=== PATIENT | male | born 1965 | race African-American/Black ===

== ENCOUNTER 2020-08-08 14:45 | Inpatient (IN) | payer OTHER ==
[~2020-08-08] VITALS: Ht 175.3 cm; Wt 107.9 kg
[2020-08-08 15:27] LABS: BILIRUBIN,URINE NEGATIVE (NEG); CLARITY,URINE CLEAR; COLOR,URINE YELLOW; NITRITE,URINE NEGATIVE (NEG); PH,URINE 5.5 (<5.0-8.0); PROTEIN,URINE NEGATIVE (NEG-TRACE); UROBILINOGEN,URINE 0.2 mg/dL (0.2 mg/dL)
[2020-08-08 15:40] LABS: BASO % 0 % (0-3); EOS % 0 % (0-3); HEMATOCRIT 24.8 % (39.0-53.0); HEMOGLOBIN 7.8 g/dL (13.0-17.5); LYMPH # 2.4 x10^3/uL (1.0-4.8); LYMPH % 33 % (24-48); MEAN CORPUSCULAR HEMOGLOBIN 24 pg (25-35); MEAN CORPUSCULAR HGB CONC 32 g/dL (31-37); MEAN CORPUSCULAR VOLUME 77 fL (79-100); MONO # 0.7 x10^3/uL (0.0-1.1); MONO % 9 % (0-9); NEUT # 4.2 x10^3/uL (1.8-7.7); NEUT % 58 % (31-73); RED BLOOD COUNT 3.22 x10^6/uL (4.30-5.70); RED CELL DISTRIBUTION WIDTH 14.5 % (11.5-14.5); WHITE BLOOD COUNT 7.3 x10^3/uL (4.0-11.0)
[2020-08-08 15:40] LABS: RBC,URINE RARE /HPF (0-2)
[2020-08-08 15:41] LABS: AMORPHOUS SEDIMENT,UR PRESENT /HPF; WBC,URINE OCC /HPF (0-4)
[2020-08-08 15:42] LABS: BACTERIA,URINE 0 /HPF (0-FEW)
[2020-08-08 15:52] LABS: CREATININE 0.8 mg/dL (0.7-1.3); GFR 101.1; POTASSIUM 3.5 mmol/L (3.5-5.1)
[2020-08-08 15:56] LABS: ALBUMIN 3.3 g/dL (3.4-5.0); ALBUMIN/GLOBULIN RATIO 1.3 (1.0-1.7); MAGNESIUM 1.8 mg/dL (1.8-2.4); TOTAL BILIRUBIN 0.3 mg/dL (0.2-1.0); TOTAL PROTEIN 5.9 g/dL (6.4-8.2)
[2020-08-08] MEDS ORDERED: IOHEXOL 300 MG/ML 100ML VIAL. IV ONE (16:15)
[2020-08-08] MEDS ORDERED: CONTRAST GIVEN. MC PRN (16:15)
[2020-08-08 16:21] LABS: HYPOCHROMIA MOD; PLT ESTIMATE DECREASED (ADEQUATE)
[2020-08-08 16:22] LABS: MICROCYTOSIS SLIGHT
--- NOTE | 2020-08-08 16:38 | RAD ---
EXAM: Abdomen and pelvis CT with intravenous contrast. HISTORY: Diarrhea. Blood in stools. TECHNIQUE: Computed tomographic images of the abdomen and pelvis were obtained following the administ ration of intravenous contrast. Multiplanar reformatting was performed. *One or more of the following individualized dose reduction techniques were utilized for this examina tion: 1. Automated exposure control. 2. Adjustment of the mA and/or kV according to patient size. 3. Use of iterative reconstruction technique. COMPARISON: None. FINDINGS: Evaluation of the lower thorax demonstrates posterior dependent atelectasis. There is no in filtrate or pleural effusion. The heart is upper normal in size. No suspicious hepatic lesion is seen . The gallbladder, pancreas, spleen, adrenal glands and kidneys are unremarkable. The stomach is unre markable. There is no appendicitis. There is no bowel obstruction. There is no bowel wall thickening. The bladder is unremarkable. The aorta is normal in caliber. There is no lymphadenopathy. There is n o suspicious osseous lesion. There is degenerative change involving the lumbar spine, primarily at L4 -L5. There is foraminal and central canal stenosis primarily at this level. IMPRESSION: No acute abdominal or pelvic finding. Electronically signed by: Chelsi Rae MD (08/08/2020 4:35 PM) [id number]
[2020-08-08 16:45] LABS: PLATELET COUNT 114 x10^3/uL (140-400)
[2020-08-08 16:47] LABS: HOWELL-JOLLY BODIES PRESENT; OVALOCYTES MOD; TARGET CELLS OCC
--- NOTE | 2020-08-08 17:05 | ED.ADGEN ---
Past Medical History Past Medical History: Anxiety, Bipolar, Depression, Diverticulitis, Other Additional Past Medical Histor: "PRE-DIABETIC", OSTEOARTHRITIS Past Surgical History: No Surgical History Smoking Status: Former Smoker Alcohol Use: Sober Drug Use: None General Adult EDM: Chief Complaint: RECTAL BLEED HPI: HPI: Patient is a 55 year old AA male, brought to the emergency department in custody of [place] nuclear officer, who presents to the ER with complaints of r ectal bleeding that began this morning. Patient reported that he had severe diarrhea yesterday but denies any blood in his stools yesterday. Patient denies any abdominal pain. He reports that he had a near syncopal episode yesterday but denies any syncope today. Patient also denies any chest pain, shortness of breath, nausea, vomiting, dysuria, hematuria, increased urinary frequency, body aches, or fatigue. He currently denies any complaints of pain. Review of Systems: Review of Systems: Complete ROS is negative unless otherwise noted in HPI. Current Medications: Current Medications Medications (Trade) Dose Ordered Sig/Luma Start Time Stop Time Status Last Admin Dose Admin Info (CONTRAST GIVEN -- Rx MONITORING) 1 each PRN DAILY PRN 08/08/20 16:15 08/10/20 16:14 Iohexol (Omnipaque 300 Mg/ml) 75 ml 1X ONCE 08/08/20 16:15 08/08/20 16:16 DC 08/08/20 16:23 75 ML Sodium Chloride 1,000 ml @ 125 mls/hr Q8H 08/08/20 17:15 08/09/20 17:14 08/08/20 19:11 125 MLS/HR Allergies: Allergies: Allergies Coded Allergies Type Severity Reaction Last Updated Verified No Known Drug Allergies 08/08/20 No Physical Exam: PE: See Above Constitutional: Well developed, well nourished, no acute distress, non-toxic appearance. [] HENT: Normocephalic, atraumatic, bilateral external ears normal, nose normal. [] Eyes: PERRLA, EOMI, conjunctiva pale bilaterally, no discharge. [] Neck: Normal range of motion, no stridor. [] Cardiovascular:Heart rate regular rhythm Lungs & Thorax: Respirations even and unlabored, no retractions, no respiratory distress Abdomen: soft, no tenderness, no palpable mass, no pulsatile mass Skin: Warm, dry, no erythema, no rash. [] Extremities: No cyanosis, ROM intact, no edema. [] Neurologic: Alert and oriented X 3, normal sensory, normal motor, no focal deficits noted. [] Psychologic: Affect normal, judgement normal, mood normal. [] Current Patient Data: Labs: Laboratory Tests Test 08/08/20 15:00 08/08/20 15:29 Urine Collection Type Unknown Urine Color Yellow Urine Clarity Clear Urine pH 5.5 (<5.0-8.0) Urine Specific [place] 1.015 (1.000-1.030) Urine Protein Negative mg/dL (NEG-TRACE) Urine Glucose (UA) Negative mg/dL (NEG) Urine Ketones (Stick) Negative mg/dL (NEG) Urine Blood Negative (NEG) Urine Nitrite Negative (NEG) Urine Bilirubin Negative (NEG) Urine Urobilinogen Dipstick 0.2 mg/dL (0.2 mg/dL) Urine Leukocyte Esterase Negative (NEG) Urine RBC Rare /HPF (0-2) Urine WBC Occ /HPF (0-4) Urine Squamous Epithelial Cells Few /LPF Urine Amorphous Sediment Present /HPF Urine Bacteria 0 /HPF (0-FEW) Urine Mucus Slight /LPF White Blood Count 7.3 x10^3/uL (4.0-11.0) Red Blood Count 3.22 x10^6/uL (4.30-5.70) L Hemoglobin 7.8 g/dL (13.0-17.5) L Hematocrit 24.8 % (39.0-53.0) L Mean Corpuscular Volume 77 fL (79-100) L Mean Corpuscular Hemoglobin 24 pg (25-35) L Mean Corpuscular Hemoglobin Concent 32 g/dL (31-37) Red Cell Distribution Width 14.5 % (11.5-14.5) Platelet Count 114 x10^3/uL (140-400) L Neutrophils (%) (Auto) 58 % (31-73) Lymphocytes (%) (Auto) 33 % (24-48) Monocytes (%) (Auto) 9 % (0-9) Eosinophils (%) (Auto) 0 % (0-3) Basophils (%) (Auto) 0 % (0-3) Neutrophils # (Auto) 4.2 x10^3/uL (1.8-7.7) Lymphocytes # (Auto) 2.4 x10^3/uL (1.0-4.8) Monocytes # (Auto) 0.7 x10^3/uL (0.0-1.1) Eosinophils # (Auto) 0.0 x10^3/uL (0.0-0.7) Basophils # (Auto) 0.0 x10^3/uL (0.0-0.2) Platelet Estimate Decreased (ADEQUATE) Large Platelets Few Hypochromasia Mod Microcytosis Slight Target Cells Occ Ovalocytes Mod Stauffer-[place] Bodies Present Sodium Level 140 mmol/L (136-145) Potassium Level 3.5 mmol/L (3.5-5.1) Chloride Level 104 mmol/L (98-107) Carbon Dioxide Level 27 mmol/L (21-32) Anion Gap 9 (6-14) Blood Urea Nitrogen 17 mg/dL (8-26) Creatinine 0.8 mg/dL (0.7-1.3) Estimated GFR (Cockcroft-Gault) 101.1 BUN/Creatinine Ratio 21 (6-20) H Glucose Level 117 mg/dL (70-99) H Calcium Level 8.0 mg/dL (8.5-10.1) L Magnesium Level 1.8 mg/dL (1.8-2.4) Total Bilirubin 0.3 mg/dL (0.2-1.0) Aspartate Amino Transferase (AST) 22 U/L (15-37) Alanine Aminotransferase (ALT) 44 U/L (16-63) Alkaline Phosphatase 60 U/L (46-116) Total Protein 5.9 g/dL (6.4-8.2) L Albumin 3.3 g/dL (3.4-5.0) L Albumin/Globulin Ratio 1.3 (1.0-1.7) Lipase 52 U/L (73-393) L Laboratory Tests 08/08/20 15:29 Laboratory Tests 08/08/20 15:29 Vital Signs: Vital Signs Date Time Temp Pulse Resp B/P (MAP) Pulse Ox O2 Delivery O2 Flow Rate FiO2 08/08/20 17:27 74 120/54 (76) 100 Room Air 08/08/20 15:00 98.6 18 98.6 EKG: EKG: [] Heart Score: C/O Chest Pain: No Risk Factors: Risk Factors: DM, Current or recent (<one month) smoker, HTN, HLP, family history of CAD, obesity. Risk Scores: Score 0 - 3: 2.5% MACE over next 6 weeks - Discharge Home Score 4 - 6: 20.3% MACE over next 6 weeks - Admit for Clinical Observation Score 7 - 10: 72.7% MACE over next 6 weeks - Early Invasive Strategies Radiology/Procedures: Radiology/Procedures: PROCEDURE: CT ABD PELV W/ IV CONTRST ONLY EXAM: Abdomen and pelvis CT with intravenous contrast. HISTORY: Diarrhea. Blood in stools. TECHNIQUE: Computed tomographic images of the abdomen and pelvis were obtained following the administration of intravenous contrast. Multiplanar reformatting was performed. *One or more of the following individualized dose reduction techniques were utilized for this examination: 1. Automated exposure control. 2. Adjustment of the mA and/or kV according to patient size. 3. Use of iterative reconstruction technique. COMPARISON: None. FINDINGS: Evaluation of the lower thorax demonstrates posterior dependent atelectasis. There is no infiltrate or pleural effusion. The heart is upper normal in size. No suspicious hepatic lesion is seen. The gallbladder, pancreas, spleen, adrenal glands and kidneys are unremarkable. The stomach is unremarkable. There is no appendicitis. There is no bowel obstruction. There is no bowel wall thickening. The bladder is unremarkable. The aorta is normal in caliber. There is no lymphadenopathy. There is no suspicious osseous lesion. There is degenerative change involving the lumbar spine, primarily at L4-L5. There is foraminal and central canal stenosis primarily at this level. IMPRESSION: No acute abdominal or pelvic finding. [] Course & Med Decision Making: Course & Med Decision Making Pertinent Labs and Imaging studies reviewed. (See chart for details) [id number] with Dr. Abebe who is the admitting physician, and care was assumed following discussion of patient. Will admit patient for anemia and GI bleed. Advised that fecal occult stool has been ordered and is pending. Will consult GI as requested. Patient's vital signs stable. Patient remains afebrile, appears nontoxic, respirations even and unlabored. Patient will be admitted to the medical/surgical floor. Patient's case and plan of care also discussed with Dr. Chan [] Kanwal Disclaimer: Kanwal Disclaimer: This electronic medical record was generated, in whole or in part, using a voice recognition dictation system. Departure Departure Impression: Primary Impression: Rectal bleeding Additional Impression: Anemia Disposition: 09 ADMITTED INPT THIS HOSP Admitting Physician: DENISA Olmstead) Condition: STABLE Referrals: NO PCP (PCP) Problem Qualifiers Additional Impression: Anemia Anemia type: unspecified type Qualified Codes: D64.9 - Anemia, unspecified JJ GU APRN Aug 08, 2020 17:05
[2020-08-08] MEDS: IV NORMAL SALINE 1000ML BAG 1,000 ML IV SCH (19:11)
[2020-08-08 20:05] VITALS: BP 147/57
--- NOTE | 2020-08-08 21:09 | PDOC1 ---
History and Physical Date of Service: DOS: DATE: 08/08/20 TIME: 20:57 Chief Complaint: Chief Complain: Bright red blood per stool per rectum History of Present Illness: HPI: Patient is a 55-year-old incarcerated male with past medical history significant for bipolar disorder and depression who comes to the ED for blood in his stool today. Patient states that he has never had this before. He has never had tarry stools or maroon stools. He does denies any rectal pain or trauma. Patient did have a colonoscopy done 3 years ago which was negative for any polyps or masses. Has never had any internal hemorrhoids. Denies any recent weight loss. Denies fevers, chest pain, abdominal pain, dysuria or constipation. Past Medical/Surgical History: PMH/PSH: Bipolar disorder and depression Allergies: Allergies: Coded Allergies: No Known Drug Allergies (Unverified , 08/08/20) Family History: Family History: Reviewed with no relevant findings Social History: Social History: Denies alcohol, drug or tobacco abuse Current Medications: Current Medications Current Medications Iohexol (Omnipaque 300 Mg/ml) 75 ml 1X ONCE IV Last administered on 08/08/20at 16:23; Start 08/08/20 at 16:15; Stop 08/08/20 at 16:16; Status DC Info (CONTRAST GIVEN -- Rx MONITORING) 1 each PRN DAILY PRN MC SEE COMMENTS; Start 08/08/20 at 16:15; Stop 08/10/20 at 16:14 Sodium Chloride 1,000 ml @ 125 mls/hr Q8H IV Last administered on 08/08/20at 19:11; Start 08/08/20 at 17:15; Stop 08/09/20 at 17:14 ROS: Review of Systems Review of System REVIEW OF SYSTEMS: GENERAL: Denies weakness SKIN: No bruising, hair changes or rashes. EYES: No blurred, double or loss of vision. NOSE AND THROAT: No history of nosebleeds, hoarseness or sore throat. HEART: No history of palpitations, chest pain or shortness of breath on exertion. LUNGS: Denies cough, hemoptysis, wheezing or shortness of breath. GASTROINTESTINAL: Denies changes in appetite, nausea, vomiting, diarrhea or constipation. GENITOURINARY: No history of frequency, urgency, hesitancy or nocturia. NEUROLOGIC: Denies history of numbness, tingling, or tremor. PSYCHIATRIC: No history of panic, anxiety or depression. ENDOCRINE: No history of heat or cold intolerance, polyuria or polydipsia. EXTREMITIES: Denies joint pain, pain on walking or stiffness. Physical Exam: Vital Signs: Vital Signs Date Time Temp Pulse Resp B/P (MAP) Pulse Ox O2 Delivery O2 Flow Rate FiO2 08/08/20 20:05 98.5 65 18 147/57 (87) 98 Room Air 98.5 Physcial Exam: GEN: No apparent distress. Alert and oriented HEENT: Normal cephalic, atraumatic, external auditory canals are patent EYES: Extraocular muscles are intact, pupil are equally round and reactive to light and accommodation MUSCULOSKELETAL: Well developed , well nourished, good range of motion ENDOCRINE: No thyromegaly was palpated LYMPHATICS: No cervical chain or axillary nodes were noted HEMATOPOIETIC: No bruising NECK: Supple, no JVD, no thyromegaly was noted LUNGS: Clear to auscultation in all lung stephens without rhonchi or wheezing HEART: RRR, S!, S2 present. Peripheral pulses intact, no obvious murmurs noted ABDOMEN: Soft, nontender. Positive bowel sounds, no organomegaly, normal bowel sounds EXTREMITIES: Without clubbing, cyanosis, or edema. Pedal pulses intact. Negative Homans sign NEUROLOGIC: Normal speech and tone. A&O x 3, moves all extremities, no obvious focal deficits PSYCHIATRIC: Normal affect, normal mood. Stable SKIN: No ulcerations or rashes, good skin turgor, no jaundice VASCULAR: Good capillary refill, neurovascular bundle appears to be intact Labs: Labs: Laboratory Tests Test 08/08/20 15:00 08/08/20 15:29 08/08/20 20:32 Urine Collection Type Unknown Urine Color Yellow Urine Clarity Clear Urine pH 5.5 (<5.0-8.0) Urine Specific [place] 1.015 (1.000-1.030) Urine Protein Negative mg/dL (NEG-TRACE) Urine Glucose (UA) Negative mg/dL (NEG) Urine Ketones (Stick) Negative mg/dL (NEG) Urine Blood Negative (NEG) Urine Nitrite Negative (NEG) Urine Bilirubin Negative (NEG) Urine Urobilinogen Dipstick 0.2 mg/dL (0.2 mg/dL) Urine Leukocyte Esterase Negative (NEG) Urine RBC Rare /HPF (0-2) Urine WBC Occ /HPF (0-4) Urine Squamous Epithelial Cells Few /LPF Urine Amorphous Sediment Present /HPF Urine Bacteria 0 /HPF (0-FEW) Urine Mucus Slight /LPF White Blood Count 7.3 x10^3/uL (4.0-11.0) Red Blood Count 3.22 x10^6/uL (4.30-5.70) Hemoglobin 7.8 g/dL (13.0-17.5) Hematocrit 24.8 % (39.0-53.0) Mean Corpuscular Volume 77 fL (79-100) Mean Corpuscular Hemoglobin 24 pg (25-35) Mean Corpuscular Hemoglobin Concent 32 g/dL (31-37) Red Cell Distribution Width 14.5 % (11.5-14.5) Platelet Count 114 x10^3/uL (140-400) Neutrophils (%) (Auto) 58 % (31-73) Lymphocytes (%) (Auto) 33 % (24-48) Monocytes (%) (Auto) 9 % (0-9) Eosinophils (%) (Auto) 0 % (0-3) Basophils (%) (Auto) 0 % (0-3) Neutrophils # (Auto) 4.2 x10^3/uL (1.8-7.7) Lymphocytes # (Auto) 2.4 x10^3/uL (1.0-4.8) Monocytes # (Auto) 0.7 x10^3/uL (0.0-1.1) Eosinophils # (Auto) 0.0 x10^3/uL (0.0-0.7) Basophils # (Auto) 0.0 x10^3/uL (0.0-0.2) Platelet Estimate Decreased (ADEQUATE) Large Platelets Few Hypochromasia Mod Microcytosis Slight Target Cells Occ Ovalocytes Mod Stauffer-[place] Bodies Present Sodium Level 140 mmol/L (136-145) Potassium Level 3.5 mmol/L (3.5-5.1) Chloride Level 104 mmol/L (98-107) Carbon Dioxide Level 27 mmol/L (21-32) Anion Gap 9 (6-14) Blood Urea Nitrogen 17 mg/dL (8-26) Creatinine 0.8 mg/dL (0.7-1.3) Estimated GFR (Cockcroft-Gault) 101.1 BUN/Creatinine Ratio 21 (6-20) Glucose Level 117 mg/dL (70-99) Calcium Level 8.0 mg/dL (8.5-10.1) Magnesium Level 1.8 mg/dL (1.8-2.4) Total Bilirubin 0.3 mg/dL (0.2-1.0) Aspartate Amino Transf (AST/SGOT) 22 U/L (15-37) Alanine Aminotransferase (ALT/SGPT) 44 U/L (16-63) Alkaline Phosphatase 60 U/L (46-116) Total Protein 5.9 g/dL (6.4-8.2) Albumin 3.3 g/dL (3.4-5.0) Albumin/Globulin Ratio 1.3 (1.0-1.7) Lipase 52 U/L (73-393) Glucose (Fingerstick) 122 mg/dL (70-99) Laboratory Tests Test 08/08/20 15:00 08/08/20 15:29 08/08/20 20:32 Urine Collection Type Unknown Urine Color Yellow Urine Clarity Clear Urine pH 5.5 (<5.0-8.0) Urine Specific [place] 1.015 (1.000-1.030) Urine Protein Negative mg/dL (NEG-TRACE) Urine Glucose (UA) Negative mg/dL (NEG) Urine Ketones (Stick) Negative mg/dL (NEG) Urine Blood Negative (NEG) Urine Nitrite Negative (NEG) Urine Bilirubin Negative (NEG) Urine Urobilinogen Dipstick 0.2 mg/dL (0.2 mg/dL) Urine Leukocyte Esterase Negative (NEG) Urine RBC Rare /HPF (0-2) Urine WBC Occ /HPF (0-4) Urine Squamous Epithelial Cells Few /LPF Urine Amorphous Sediment Present /HPF Urine Bacteria 0 /HPF (0-FEW) Urine Mucus Slight /LPF White Blood Count 7.3 x10^3/uL (4.0-11.0) Red Blood Count 3.22 x10^6/uL (4.30-5.70) Hemoglobin 7.8 g/dL (13.0-17.5) Hematocrit 24.8 % (39.0-53.0) Mean Corpuscular Volume 77 fL (79-100) Mean Corpuscular Hemoglobin 24 pg (25-35) Mean Corpuscular Hemoglobin Concent 32 g/dL (31-37) Red Cell Distribution Width 14.5 % (11.5-14.5) Platelet Count 114 x10^3/uL (140-400) Neutrophils (%) (Auto) 58 % (31-73) Lymphocytes (%) (Auto) 33 % (24-48) Monocytes (%) (Auto) 9 % (0-9) Eosinophils (%) (Auto) 0 % (0-3) Basophils (%) (Auto) 0 % (0-3) Neutrophils # (Auto) 4.2 x10^3/uL (1.8-7.7) Lymphocytes # (Auto) 2.4 x10^3/uL (1.0-4.8) Monocytes # (Auto) 0.7 x10^3/uL (0.0-1.1) Eosinophils # (Auto) 0.0 x10^3/uL (0.0-0.7) Basophils # (Auto) 0.0 x10^3/uL (0.0-0.2) Platelet Estimate Decreased (ADEQUATE) Large Platelets Few Hypochromasia Mod Microcytosis Slight Target Cells Occ Ovalocytes Mod Stauffer-[place] Bodies Present Sodium Level 140 mmol/L (136-145) Potassium Level 3.5 mmol/L (3.5-5.1) Chloride Level 104 mmol/L (98-107) Carbon Dioxide Level 27 mmol/L (21-32) Anion Gap 9 (6-14) Blood Urea Nitrogen 17 mg/dL (8-26) Creatinine 0.8 mg/dL (0.7-1.3) Estimated GFR (Cockcroft-Gault) 101.1 BUN/Creatinine Ratio 21 (6-20) Glucose Level 117 mg/dL (70-99) Calcium Level 8.0 mg/dL (8.5-10.1) Magnesium Level 1.8 mg/dL (1.8-2.4) Total Bilirubin 0.3 mg/dL (0.2-1.0) Aspartate Amino Transf (AST/SGOT) 22 U/L (15-37) Alanine Aminotransferase (ALT/SGPT) 44 U/L (16-63) Alkaline Phosphatase 60 U/L (46-116) Total Protein 5.9 g/dL (6.4-8.2) Albumin 3.3 g/dL (3.4-5.0) Albumin/Globulin Ratio 1.3 (1.0-1.7) Lipase 52 U/L (73-393) Glucose (Fingerstick) 122 mg/dL (70-99) Images: Images EXAM: Abdomen and pelvis CT with intravenous contrast. HISTORY: Diarrhea. Blood in stools. TECHNIQUE: Computed tomographic images of the abdomen and pelvis were obtained following the administration of intravenous contrast. Multiplanar reformatting was performed. *One or more of the following individualized dose reduction techniques were utilized for this examination: 1. Automated exposure control. 2. Adjustment of the mA and/or kV according to patient size. 3. Use of iterative reconstruction technique. COMPARISON: None. FINDINGS: Evaluation of the lower thorax demonstrates posterior dependent atelectasis. There is no infiltrate or pleural effusion. The heart is upper normal in size. No suspicious hepatic lesion is seen. The gallbladder, pancreas, spleen, adrenal glands and kidneys are unremarkable. The stomach is unremarkable. There is no appendicitis. There is no bowel obstruction. There is no bowel wall thickening. The bladder is unremarkable. The aorta is normal in caliber. There is no lymphadenopathy. There is no suspicious osseous lesion. There is degenerative change involving the lumbar spine, primarily at L4-L5. There is foraminal and central canal stenosis primarily at this level. IMPRESSION: No acute abdominal or pelvic finding. Assessment/Plan Assessment/Plan Microcytic anemia due to lower GI bleed Thrombocytopenia Prerenal azotemia Admit to medicine for further management GI consult HIV screen UDS Ferritin level Continue IV fluids Clear liquid diet N.p.o. at midnight Hold for DVT prophylaxis Protonix GI prophylaxis ADA diet Full code Discussed with RN and SW Disposition inpatient management as above Surrogate decision maker is Undesignated this time Justifications for Admission Other Justification HANS ROGERS MD Aug 08, 2020 21:09
[2020-08-08] MEDS ORDERED: SENNOSIDES 8.6 MG TABLET PO PRN (21:15)
[2020-08-08] MEDS ORDERED: DEXTROSE 50% 25 GM / 50ML DISP.SYRIN. IV PRN (21:15)
[2020-08-08] MEDS ORDERED: ONDANSETRON PF 4 MG/2 ML VIAL. IVP PRN (21:15)
[2020-08-08] MEDS ORDERED: DOCUSATE SODIUM 100 MG CAPSULE. PO PRN (21:15)
[2020-08-08] MEDS ORDERED: MIRT-34 PO (21:32)
[2020-08-08] MEDS ORDERED: CELE100C PO (21:32)
[2020-08-08] MEDS ORDERED: MULT-246 PO (21:32)
[2020-08-08] MEDS ORDERED: SERT100T PO (21:32)
[2020-08-08] MEDS ORDERED: ATOR40TA PO (21:32)
--- NOTE | 2020-08-08 21:53 | NUR ---
Pt. arrived on unit at 2004 by wheelchair. Pt. does not complain of any pain, nausea, or vomiting. Call light is within reach with bed in lowest position. Will continue to monitor.
[2020-08-08 23:00] VITALS: BP 104/87
[2020-08-09] MEDS ORDERED: ACETAMINOPHEN 325 MG TABLET. PO PRN
[2020-08-09 03:00] VITALS: BP 101/49
[2020-08-09] MEDS: PANTOPRAZOLE IV PUSH 40 MG VIAL. IVP SCH (05:57)
[2020-08-09] MEDS: IV NORMAL SALINE 1000ML BAG 1,000 ML IV SCH ×2 (05:58→14:46)
[2020-08-09 07:00] VITALS: BP 116/57
[2020-08-09 07:20] LABS: BASO % 1 % (0-3); EOS # 0.1 x10^3/uL (0.0-0.7); EOS % 2 % (0-3); HEMATOCRIT 24.1 % (39.0-53.0); HEMOGLOBIN 7.5 g/dL (13.0-17.5); LYMPH # 2.4 x10^3/uL (1.0-4.8); LYMPH % 36 % (24-48); MEAN CORPUSCULAR HEMOGLOBIN 24 pg (25-35); MEAN CORPUSCULAR HGB CONC 31 g/dL (31-37); MEAN CORPUSCULAR VOLUME 78 fL (79-100); MONO # 0.7 x10^3/uL (0.0-1.1); MONO % 12 % (0-9); NEUT # 3.2 x10^3/uL (1.8-7.7); NEUT % 50 % (31-73); PLATELET COUNT 91 x10^3/uL (140-400); RED CELL DISTRIBUTION WIDTH 14.6 % (11.5-14.5); WHITE BLOOD COUNT 6.5 x10^3/uL (4.0-11.0)
[2020-08-09] MEDS ORDERED: MELO7.5T5 PO (07:26)
[2020-08-09 07:43] LABS: CALCIUM 8.1 mg/dL (8.5-10.1); CREATININE 0.7 mg/dL (0.7-1.3); GFR 142.7; MAGNESIUM 2.2 mg/dL (1.8-2.4); PHOSPHORUS 2.7 mg/dL (2.6-4.7); POTASSIUM 4.2 mmol/L (3.5-5.1)
[2020-08-09] MEDS: ATORVASTATIN CALCIUM 40 MG TABLET. PO SCH (08:37)
[2020-08-09] MEDS: SERTRALINE 50 MG TABLET. PO SCH (08:38)
--- NOTE | 2020-08-09 10:38 | PDOC ---
PROGRESS NOTES Date of Service: DATE: 08/09/20 TIME: 10:37 Chief Complaint Chief Complaint IMPRESSION Microcytic anemia due to lower GI bleed Thrombocytopenia Prerenal azotemia [employer]IL[employer] PLAN Admit to medicine for further management GI consult HIV screen UDS Ferritin level Continue IV fluids Clear liquid diet N.p.o. at midnight Hold for DVT prophylaxis Protonix GI prophylaxis ADA diet Full code Discussed with RN and SW Disposition inpatient management as above Surrogate decision maker is Undesignated this time History of Present Illness History of Present Illness Chief Complaint: Chief Complain: Bright red blood per stool per rectum History of Present Illness: HPI: Patient is a 55-year-old incarcerated male with past medical history significant for bipolar disorder and depression who comes to the ED for blood in his stool today. Patient states that he has never had this before. He has never had tarry stools or maroon stools. He does denies any rectal pain or trauma. Patient did have a colonoscopy done 3 years ago which was negative for any polyps or masses. Has never had any internal hemorrhoids. Denies any recent weight loss. Denies fevers, chest pain, abdominal pain, dysuria or constipation. Past Medical/Surgical History: PMH/PSH: Bipolar disorder and depression Allergies: Allergies: Coded Allergies: No Known Drug Allergies (Unverified , 08/08/20) Family History: Family History: Reviewed with no relevant findings Social History: Social History: Denies alcohol, drug or tobacco abuse Current Medications: Current Medications Current Medications Iohexol (Omnipaque 300 Mg/ml) 75 ml 1X ONCE IV Last administered on 08/08/20at 16:23; Start 08/08/20 at 16:15; Stop 08/08/20 at 16:16; Status DC Info (CONTRAST GIVEN -- Rx MONITORING) 1 each PRN DAILY PRN MC SEE COMMENTS; Start 08/08/20 at 16:15; Stop 08/10/20 at 16:14 Sodium Chloride 1,000 ml @ 125 mls/hr Q8H IV Last administered on 08/08/20at 19:11; Start 08/08/20 at 17:15; Stop 08/09/20 at 17:14 ROS: Review of Systems Review of System REVIEW OF SYSTEMS: GENERAL: Denies weakness SKIN: No bruising, hair changes or rashes. EYES: No blurred, double or loss of vision. NOSE AND THROAT: No history of nosebleeds, hoarseness or sore throat. HEART: No history of palpitations, chest pain or shortness of breath on exertion. LUNGS: Denies cough, hemoptysis, wheezing or shortness of breath. GASTROINTESTINAL: Denies changes in appetite, nausea, vomiting, diarrhea or constipation. GENITOURINARY: No history of frequency, urgency, hesitancy or nocturia. NEUROLOGIC: Denies history of numbness, tingling, or tremor. PSYCHIATRIC: No history of panic, anxiety or depression. ENDOCRINE: No history of heat or cold intolerance, polyuria or polydipsia. EXTREMITIES: Denies joint pain, pain on walking or stiffness. Vitals Vitals Vital Signs Date Time Temp Pulse Resp B/P (MAP) Pulse Ox O2 Delivery O2 Flow Rate FiO2 08/09/20 07:00 98.3 55 14 116/57 (76) 98 Room Air 98.3 Physical Exam Physical Exam Physcial Exam: GEN: No apparent distress. Alert and oriented HEENT: Normal cephalic, atraumatic, external auditory canals are patent EYES: Extraocular muscles are intact, pupil are equally round and reactive to light and accommodation MUSCULOSKELETAL: Well developed , well nourished, good range of motion ENDOCRINE: No thyromegaly was palpated LYMPHATICS: No cervical chain or axillary nodes were noted HEMATOPOIETIC: No bruising NECK: Supple, no JVD, no thyromegaly was noted LUNGS: Clear to auscultation in all lung stephens without rhonchi or wheezing HEART: RRR, S!, S2 present. Peripheral pulses intact, no obvious murmurs noted ABDOMEN: Soft, nontender. Positive bowel sounds, no organomegaly, normal bowel sounds EXTREMITIES: Without clubbing, cyanosis, or edema. Pedal pulses intact. Negative Homans sign NEUROLOGIC: Normal speech and tone. A&O x 3, moves all extremities, no obvious focal deficits PSYCHIATRIC: Normal affect, normal mood. Stable SKIN: No ulcerations or rashes, good skin turgor, no jaundice VASCULAR: Good capillary refill, neurovascular bundle appears to be intact General: Alert, Oriented X3, Cooperative, No acute distress Extremities: Normal pulses Labs LABS EXAM: Abdomen and pelvis CT with intravenous contrast. HISTORY: Diarrhea. Blood in stools. TECHNIQUE: Computed tomographic images of the abdomen and pelvis were obtained following the administration of intravenous contrast. Multiplanar reformatting was performed. *One or more of the following individualized dose reduction techniques were utilized for this examination: 1. Automated exposure control. 2. Adjustment of the mA and/or kV according to patient size. 3. Use of iterative reconstruction technique. COMPARISON: None. FINDINGS: Evaluation of the lower thorax demonstrates posterior dependent atelectasis. There is no infiltrate or pleural effusion. The heart is upper normal in size. No suspicious hepatic lesion is seen. The gallbladder, pancreas, spleen, adrenal glands and kidneys are unremarkable. The stomach is unremarkable. There is no appendicitis. There is no bowel obstruction. There is no bowel wall thickening. The bladder is unremarkable. The aorta is normal in caliber. There is no lymphadenopathy. There is no suspicious osseous lesion. There is degenerative change involving the lumbar spine, primarily at L4-L5. There is foraminal and central canal stenosis primarily at this level. IMPRESSION: No acute abdominal or pelvic finding. Electronically signed by: Chelsi Quintanilla MD (08/08/2020 4:35 PM) [id number] DICTATED and SIGNED BY: CHELSI QUINTANILLA MD Laboratory Tests Test 08/08/20 15:00 08/08/20 15:27 08/08/20 15:29 08/08/20 20:32 Urine Collection Type Unknown Urine Color Yellow Urine Clarity Clear Urine pH 5.5 (<5.0-8.0) Urine Specific [place] 1.015 (1.000-1.030) Urine Protein Negative mg/dL (NEG-TRACE) Urine Glucose (UA) Negative mg/dL (NEG) Urine Ketones (Stick) Negative mg/dL (NEG) Urine Blood Negative (NEG) Urine Nitrite Negative (NEG) Urine Bilirubin Negative (NEG) Urine Urobilinogen Dipstick 0.2 mg/dL (0.2 mg/dL) Urine Leukocyte Esterase Negative (NEG) Urine RBC Rare /HPF (0-2) Urine WBC Occ /HPF (0-4) Urine Squamous Epithelial Cells Few /LPF Urine Amorphous Sediment Present /HPF Urine Bacteria 0 /HPF (0-FEW) Urine Mucus Slight /LPF Ferritin 40 ng/mL (26-388) White Blood Count 7.3 x10^3/uL (4.0-11.0) Red Blood Count 3.22 x10^6/uL (4.30-5.70) Hemoglobin 7.8 g/dL (13.0-17.5) Hematocrit 24.8 % (39.0-53.0) Mean Corpuscular Volume 77 fL (79-100) Mean Corpuscular Hemoglobin 24 pg (25-35) Mean Corpuscular Hemoglobin Concent 32 g/dL (31-37) Red Cell Distribution Width 14.5 % (11.5-14.5) Platelet Count 114 x10^3/uL (140-400) Neutrophils (%) (Auto) 58 % (31-73) Lymphocytes (%) (Auto) 33 % (24-48) Monocytes (%) (Auto) 9 % (0-9) Eosinophils (%) (Auto) 0 % (0-3) Basophils (%) (Auto) 0 % (0-3) Neutrophils # (Auto) 4.2 x10^3/uL (1.8-7.7) Lymphocytes # (Auto) 2.4 x10^3/uL (1.0-4.8) Monocytes # (Auto) 0.7 x10^3/uL (0.0-1.1) Eosinophils # (Auto) 0.0 x10^3/uL (0.0-0.7) Basophils # (Auto) 0.0 x10^3/uL (0.0-0.2) Platelet Estimate Decreased (ADEQUATE) Large Platelets Few Hypochromasia Mod Microcytosis Slight Target Cells Occ Ovalocytes Mod Stauffer-[place] Bodies Present Sodium Level 140 mmol/L (136-145) Potassium Level 3.5 mmol/L (3.5-5.1) Chloride Level 104 mmol/L (98-107) Carbon Dioxide Level 27 mmol/L (21-32) Anion Gap 9 (6-14) Blood Urea Nitrogen 17 mg/dL (8-26) Creatinine 0.8 mg/dL (0.7-1.3) Estimated GFR (Cockcroft-Gault) 101.1 BUN/Creatinine Ratio 21 (6-20) Glucose Level 117 mg/dL (70-99) Calcium Level 8.0 mg/dL (8.5-10.1) Magnesium Level 1.8 mg/dL (1.8-2.4) Total Bilirubin 0.3 mg/dL (0.2-1.0) Aspartate Amino Transf (AST/SGOT) 22 U/L (15-37) Alanine Aminotransferase (ALT/SGPT) 44 U/L (16-63) Alkaline Phosphatase 60 U/L (46-116) Total Protein 5.9 g/dL (6.4-8.2) Albumin 3.3 g/dL (3.4-5.0) Albumin/Globulin Ratio 1.3 (1.0-1.7) Lipase 52 U/L (73-393) Glucose (Fingerstick) 122 mg/dL (70-99) Test 08/09/20 06:40 White Blood Count 6.5 x10^3/uL (4.0-11.0) Red Blood Count 3.10 x10^6/uL (4.30-5.70) Hemoglobin 7.5 g/dL (13.0-17.5) Hematocrit 24.1 % (39.0-53.0) Mean Corpuscular Volume 78 fL (79-100) Mean Corpuscular Hemoglobin 24 pg (25-35) Mean Corpuscular Hemoglobin Concent 31 g/dL (31-37) Red Cell Distribution Width 14.6 % (11.5-14.5) Platelet Count 91 x10^3/uL (140-400) Neutrophils (%) (Auto) 50 % (31-73) Lymphocytes (%) (Auto) 36 % (24-48) Monocytes (%) (Auto) 12 % (0-9) Eosinophils (%) (Auto) 2 % (0-3) Basophils (%) (Auto) 1 % (0-3) Neutrophils # (Auto) 3.2 x10^3/uL (1.8-7.7) Lymphocytes # (Auto) 2.4 x10^3/uL (1.0-4.8) Monocytes # (Auto) 0.7 x10^3/uL (0.0-1.1) Eosinophils # (Auto) 0.1 x10^3/uL (0.0-0.7) Basophils # (Auto) 0.0 x10^3/uL (0.0-0.2) Sodium Level 144 mmol/L (136-145) Potassium Level 4.2 mmol/L (3.5-5.1) Chloride Level 109 mmol/L (98-107) Carbon Dioxide Level 29 mmol/L (21-32) Anion Gap 6 (6-14) Blood Urea Nitrogen 10 mg/dL (8-26) Creatinine 0.7 mg/dL (0.7-1.3) Estimated GFR (Cockcroft-Gault) 142.7 Glucose Level 107 mg/dL (70-99) Calcium Level 8.1 mg/dL (8.5-10.1) Phosphorus Level 2.7 mg/dL (2.6-4.7) Magnesium Level 2.2 mg/dL (1.8-2.4) Assessment and Plan Assessmemt and Plan Problems Medical Problems: (1) Anemia Status: Acute (2) Rectal bleeding Status: Acute Comment Review of Relevant I have reviewed the following items bennie (where applicable) has been applied. Labs Laboratory Tests Test 08/08/20 15:00 08/08/20 15:27 08/08/20 15:29 08/08/20 20:32 Urine Collection Type Unknown Urine Color Yellow Urine Clarity Clear Urine pH 5.5 (<5.0-8.0) Urine Specific [place] 1.015 (1.000-1.030) Urine Protein Negative mg/dL (NEG-TRACE) Urine Glucose (UA) Negative mg/dL (NEG) Urine Ketones (Stick) Negative mg/dL (NEG) Urine Blood Negative (NEG) Urine Nitrite Negative (NEG) Urine Bilirubin Negative (NEG) Urine Urobilinogen Dipstick 0.2 mg/dL (0.2 mg/dL) Urine Leukocyte Esterase Negative (NEG) Urine RBC Rare /HPF (0-2) Urine WBC Occ /HPF (0-4) Urine Squamous Epithelial Cells Few /LPF Urine Amorphous Sediment Present /HPF Urine Bacteria 0 /HPF (0-FEW) Urine Mucus Slight /LPF Ferritin 40 ng/mL (26-388) White Blood Count 7.3 x10^3/uL (4.0-11.0) Red Blood Count 3.22 x10^6/uL (4.30-5.70) Hemoglobin 7.8 g/dL (13.0-17.5) Hematocrit 24.8 % (39.0-53.0) Mean Corpuscular Volume 77 fL (79-100) Mean Corpuscular Hemoglobin 24 pg (25-35) Mean Corpuscular Hemoglobin Concent 32 g/dL (31-37) Red Cell Distribution Width 14.5 % (11.5-14.5) Platelet Count 114 x10^3/uL (140-400) Neutrophils (%) (Auto) 58 % (31-73) Lymphocytes (%) (Auto) 33 % (24-48) Monocytes (%) (Auto) 9 % (0-9) Eosinophils (%) (Auto) 0 % (0-3) Basophils (%) (Auto) 0 % (0-3) Neutrophils # (Auto) 4.2 x10^3/uL (1.8-7.7) Lymphocytes # (Auto) 2.4 x10^3/uL (1.0-4.8) Monocytes # (Auto) 0.7 x10^3/uL (0.0-1.1) Eosinophils # (Auto) 0.0 x10^3/uL (0.0-0.7) Basophils # (Auto) 0.0 x10^3/uL (0.0-0.2) Platelet Estimate Decreased (ADEQUATE) Large Platelets Few Hypochromasia Mod Microcytosis Slight Target Cells Occ Ovalocytes Mod Stauffer-[place] Bodies Present Sodium Level 140 mmol/L (136-145) Potassium Level 3.5 mmol/L (3.5-5.1) Chloride Level 104 mmol/L (98-107) Carbon Dioxide Level 27 mmol/L (21-32) Anion Gap 9 (6-14) Blood Urea Nitrogen 17 mg/dL (8-26) Creatinine 0.8 mg/dL (0.7-1.3) Estimated GFR (Cockcroft-Gault) 101.1 BUN/Creatinine Ratio 21 (6-20) Glucose Level 117 mg/dL (70-99) Calcium Level 8.0 mg/dL (8.5-10.1) Magnesium Level 1.8 mg/dL (1.8-2.4) Total Bilirubin 0.3 mg/dL (0.2-1.0) Aspartate Amino Transf (AST/SGOT) 22 U/L (15-37) Alanine Aminotransferase (ALT/SGPT) 44 U/L (16-63) Alkaline Phosphatase 60 U/L (46-116) Total Protein 5.9 g/dL (6.4-8.2) Albumin 3.3 g/dL (3.4-5.0) Albumin/Globulin Ratio 1.3 (1.0-1.7) Lipase 52 U/L (73-393) Glucose (Fingerstick) 122 mg/dL (70-99) Test 08/09/20 06:40 White Blood Count 6.5 x10^3/uL (4.0-11.0) Red Blood Count 3.10 x10^6/uL (4.30-5.70) Hemoglobin 7.5 g/dL (13.0-17.5) Hematocrit 24.1 % (39.0-53.0) Mean Corpuscular Volume 78 fL (79-100) Mean Corpuscular Hemoglobin 24 pg (25-35) Mean Corpuscular Hemoglobin Concent 31 g/dL (31-37) Red Cell Distribution Width 14.6 % (11.5-14.5) Platelet Count 91 x10^3/uL (140-400) Neutrophils (%) (Auto) 50 % (31-73) Lymphocytes (%) (Auto) 36 % (24-48) Monocytes (%) (Auto) 12 % (0-9) Eosinophils (%) (Auto) 2 % (0-3) Basophils (%) (Auto) 1 % (0-3) Neutrophils # (Auto) 3.2 x10^3/uL (1.8-7.7) Lymphocytes # (Auto) 2.4 x10^3/uL (1.0-4.8) Monocytes # (Auto) 0.7 x10^3/uL (0.0-1.1) Eosinophils # (Auto) 0.1 x10^3/uL (0.0-0.7) Basophils # (Auto) 0.0 x10^3/uL (0.0-0.2) Sodium Level 144 mmol/L (136-145) Potassium Level 4.2 mmol/L (3.5-5.1) Chloride Level 109 mmol/L (98-107) Carbon Dioxide Level 29 mmol/L (21-32) Anion Gap 6 (6-14) Blood Urea Nitrogen 10 mg/dL (8-26) Creatinine 0.7 mg/dL (0.7-1.3) Estimated GFR (Cockcroft-Gault) 142.7 Glucose Level 107 mg/dL (70-99) Calcium Level 8.1 mg/dL (8.5-10.1) Phosphorus Level 2.7 mg/dL (2.6-4.7) Magnesium Level 2.2 mg/dL (1.8-2.4) Laboratory Tests Test 08/08/20 15:00 08/08/20 15:27 08/08/20 15:29 08/08/20 20:32 Urine Collection Type Unknown Urine Color Yellow Urine Clarity Clear Urine pH 5.5 (<5.0-8.0) Urine Specific [place] 1.015 (1.000-1.030) Urine Protein Negative mg/dL (NEG-TRACE) Urine Glucose (UA) Negative mg/dL (NEG) Urine Ketones (Stick) Negative mg/dL (NEG) Urine Blood Negative (NEG) Urine Nitrite Negative (NEG) Urine Bilirubin Negative (NEG) Urine Urobilinogen Dipstick 0.2 mg/dL (0.2 mg/dL) Urine Leukocyte Esterase Negative (NEG) Urine RBC Rare /HPF (0-2) Urine WBC Occ /HPF (0-4) Urine Squamous Epithelial Cells Few /LPF Urine Amorphous Sediment Present /HPF Urine Bacteria 0 /HPF (0-FEW) Urine Mucus Slight /LPF Ferritin 40 ng/mL (26-388) White Blood Count 7.3 x10^3/uL (4.0-11.0) Red Blood Count 3.22 x10^6/uL (4.30-5.70) Hemoglobin 7.8 g/dL (13.0-17.5) Hematocrit 24.8 % (39.0-53.0) Mean Corpuscular Volume 77 fL (79-100) Mean Corpuscular Hemoglobin 24 pg (25-35) Mean Corpuscular Hemoglobin Concent 32 g/dL (31-37) Red Cell Distribution Width 14.5 % (11.5-14.5) Platelet Count 114 x10^3/uL (140-400) Neutrophils (%) (Auto) 58 % (31-73) Lymphocytes (%) (Auto) 33 % (24-48) Monocytes (%) (Auto) 9 % (0-9) Eosinophils (%) (Auto) 0 % (0-3) Basophils (%) (Auto) 0 % (0-3) Neutrophils # (Auto) 4.2 x10^3/uL (1.8-7.7) Lymphocytes # (Auto) 2.4 x10^3/uL (1.0-4.8) Monocytes # (Auto) 0.7 x10^3/uL (0.0-1.1) Eosinophils # (Auto) 0.0 x10^3/uL (0.0-0.7) Basophils # (Auto) 0.0 x10^3/uL (0.0-0.2) Platelet Estimate Decreased (ADEQUATE) Large Platelets Few Hypochromasia Mod Microcytosis Slight Target Cells Occ Ovalocytes Mod Stauffer-[place] Bodies Present Sodium Level 140 mmol/L (136-145) Potassium Level 3.5 mmol/L (3.5-5.1) Chloride Level 104 mmol/L (98-107) Carbon Dioxide Level 27 mmol/L (21-32) Anion Gap 9 (6-14) Blood Urea Nitrogen 17 mg/dL (8-26) Creatinine 0.8 mg/dL (0.7-1.3) Estimated GFR (Cockcroft-Gault) 101.1 BUN/Creatinine Ratio 21 (6-20) Glucose Level 117 mg/dL (70-99) Calcium Level 8.0 mg/dL (8.5-10.1) Magnesium Level 1.8 mg/dL (1.8-2.4) Total Bilirubin 0.3 mg/dL (0.2-1.0) Aspartate Amino Transf (AST/SGOT) 22 U/L (15-37) Alanine Aminotransferase (ALT/SGPT) 44 U/L (16-63) Alkaline Phosphatase 60 U/L (46-116) Total Protein 5.9 g/dL (6.4-8.2) Albumin 3.3 g/dL (3.4-5.0) Albumin/Globulin Ratio 1.3 (1.0-1.7) Lipase 52 U/L (73-393) Glucose (Fingerstick) 122 mg/dL (70-99) Test 08/09/20 06:40 White Blood Count 6.5 x10^3/uL (4.0-11.0) Red Blood Count 3.10 x10^6/uL (4.30-5.70) Hemoglobin 7.5 g/dL (13.0-17.5) Hematocrit 24.1 % (39.0-53.0) Mean Corpuscular Volume 78 fL (79-100) Mean Corpuscular Hemoglobin 24 pg (25-35) Mean Corpuscular Hemoglobin Concent 31 g/dL (31-37) Red Cell Distribution Width 14.6 % (11.5-14.5) Platelet Count 91 x10^3/uL (140-400) Neutrophils (%) (Auto) 50 % (31-73) Lymphocytes (%) (Auto) 36 % (24-48) Monocytes (%) (Auto) 12 % (0-9) Eosinophils (%) (Auto) 2 % (0-3) Basophils (%) (Auto) 1 % (0-3) Neutrophils # (Auto) 3.2 x10^3/uL (1.8-7.7) Lymphocytes # (Auto) 2.4 x10^3/uL (1.0-4.8) Monocytes # (Auto) 0.7 x10^3/uL (0.0-1.1) Eosinophils # (Auto) 0.1 x10^3/uL (0.0-0.7) Basophils # (Auto) 0.0 x10^3/uL (0.0-0.2) Sodium Level 144 mmol/L (136-145) Potassium Level 4.2 mmol/L (3.5-5.1) Chloride Level 109 mmol/L (98-107) Carbon Dioxide Level 29 mmol/L (21-32) Anion Gap 6 (6-14) Blood Urea Nitrogen 10 mg/dL (8-26) Creatinine 0.7 mg/dL (0.7-1.3) Estimated GFR (Cockcroft-Gault) 142.7 Glucose Level 107 mg/dL (70-99) Calcium Level 8.1 mg/dL (8.5-10.1) Phosphorus Level 2.7 mg/dL (2.6-4.7) Magnesium Level 2.2 mg/dL (1.8-2.4) Medications Current Medications Iohexol (Omnipaque 300 Mg/ml) 75 ml 1X ONCE IV Last administered on 08/08/20at 16:23; Start 08/08/20 at 16:15; Stop 08/08/20 at 16:16; Status DC Info (CONTRAST GIVEN -- Rx MONITORING) 1 each PRN DAILY PRN MC SEE COMMENTS; Start 3/12/21 at 16:15; Stop 08/10/20 at 16:14 Sodium Chloride 1,000 ml @ 125 mls/hr Q8H IV Last administered on 08/09/20at 05:58; Start 08/08/20 at 17:15; Stop 08/09/20 at 17:14 Sennosides (Senna) 17.2 mg PRN BID PRN PO CONSTIPATION; Start 08/08/20 at 21:15 Docusate Sodium (Colace) 100 mg PRN DAILY PRN PO HARD STOOLS; Start 08/08/20 at 21:15 Ondansetron HCl (Zofran) 4 mg PRN Q6HRS PRN IVP NAUSEA/VOMITING 1ST CHOICE; Start 08/08/20 at 21:15 Dextrose (Dextrose 50%-Water Syringe) 12.5 gm PRN Q15MIN PRN IV SEE COMMENTS; Start 08/08/20 at 21:15 Acetaminophen (Tylenol) 650 mg PRN Q4HRS PRN PO TEMP OVER 100.4F OR MILD PAIN; Start 08/08/20 at 21:15 Pantoprazole Sodium (PROTONIX VIAL for IV PUSH) 40 mg DAILYAC IVP Last adm inistered on 08/09/20at 05:57; Start 08/09/20 at 07:30 Atorvastatin Calcium (Lipitor) 40 mg DAILY PO Last administered on 08/09/20at 08:37; Start 08/09/20 at 09:00 Sertraline HCl (Zoloft) 100 mg DAILY PO Last administered on 08/09/20at 08:38; Start 08/09/20 at 09:00 Acetaminophen (Tylenol) 650 mg PRN Q6HRS PRN PO MILD PAIN / TEMP > 100.3'F; Start 08/09/20 at 00:00; Stop 08/09/20 at 00:03; Status DC Active Scripts Active Reported Mobic (Meloxicam) 7.5 Mg Tablet 7.5 Mg PO BID Lipitor (Atorvastatin Calcium) 40 Mg Tablet 40 Mg PO DAILY Multi-Vitamin Daily (Multivitamin) 1 Each Tablet 1 Tab PO DAILY 30 Days Celebrex (Celecoxib) 100 Mg Capsule 100 Mg PO BID 30 Days Remeron (Mirtazapine) 30 Mg Tablet 1 Tab PO QHS Zoloft (Sertraline Hcl) 100 Mg Tablet 100 Mg PO DAILY Vitals/I & O Vital Sign - Last 24 Hours 08/08/20 08/08/20 08/08/20 08/08/20 14:57 15:00 15:27 15:57 Temp 98.6 98.6 Pulse 87 84 79 71 Resp 18 B/P (MAP) 173/87 (115) 173/87 (115) 137/63 (87) 111/56 (74) Pulse Ox 100 99 100 100 O2 Delivery Room Air Room Air Room Air Room Air 08/08/20 08/08/20 08/08/20 08/08/20 16:57 17:27 19:27 19:55 Pulse 69 74 66 66 B/P (MAP) 124/63 (83) 120/54 (76) 119/61 (80) 108/68 (81) Pulse Ox 98 100 97 97 O2 Delivery Room Air Room Air Room Air Room Air 08/08/20 08/08/20 08/09/20 08/09/20 20:05 23:00 03:00 07:00 Temp 98.5 97.7 97.8 98.3 98.5 97.7 97.8 98.3 Pulse 65 54 60 55 Resp 18 18 18 14 B/P (MAP) 147/57 (87) 104/87 (93) 101/49 (66) 116/57 (76) Pulse Ox 98 93 95 98 O2 Delivery Room Air Room Air Room Air Room Air Justicifation of Admission Dx: Justifications for Admission: Justification of Admission Dx: Yes Comments: rectal bleeding PILAR BRANTLEY MD Aug 09, 2020 10:38
[2020-08-09 11:00] VITALS: BP 132/67
--- NOTE | 2020-08-09 12:09 | PDOC2 ---
GI CONSULT Date of Service: DATE: 08/09/20 TIME: 11:56 Reason For Consult: Blood in stool/anemia HPI: HPI: 55 y/o male with 3 days of overt blood in stool; stools have been looser with this but frequency (BID) same as before. Denies melena though mentions "darker" now. Noted to have microcytic anemia. Had historically normal colonoscopy in [place], [place] in 2018. Says long-standing issues with iron deficiency and off and on po iron, currently off. Never had EGD. No pain, N, V. Wt/appetite OK. GIFH negative. Never constipation. Denies heartburn, dysphagia, PUD, GB or pancreatic history. Apparently positive HCV antibody with negative PCR assays c/w false-positive antibody. PMH: PMH: BAD, depression FH: Family History: No pertinent hx Social History: Smoke: No ALCOHOL: none Drugs: None ROS: GEN: Denies fevers, chills, sweats HEENT: Denies blurred vision, sore throat CV: Denies chest pain RESP: Denies shortness of air, cough GI: Per HPI : Denies hematuria, dysuria ENDO: Denies weight changes NEURO: Denies confusion, dizziness MSK: Denies weakness, joint pain/swelling SKIN: Denies jaundice, pruritus Vitals: Vitals: Vital Signs Date Time Temp Pulse Resp B/P (MAP) Pulse Ox O2 Delivery O2 Flow Rate FiO2 08/09/20 11:00 97.7 65 16 132/67 (88) 98 Room Air 97.7 Labs: Labs: Laboratory Tests Test 08/08/20 15:00 08/08/20 15:27 08/08/20 15:29 08/08/20 20:32 Urine Collection Type Unknown Urine Color Yellow Urine Clarity Clear Urine pH 5.5 (<5.0-8.0) Urine Specific [place] 1.015 (1.000-1.030) Urine Protein Negative mg/dL (NEG-TRACE) Urine Glucose (UA) Negative mg/dL (NEG) Urine Ketones (Stick) Negative mg/dL (NEG) Urine Blood Negative (NEG) Urine Nitrite Negative (NEG) Urine Bilirubin Negative (NEG) Urine Urobilinogen Dipstick 0.2 mg/dL (0.2 mg/dL) Urine Leukocyte Esterase Negative (NEG) Urine RBC Rare /HPF (0-2) Urine WBC Occ /HPF (0-4) Urine Squamous Epithelial Cells Few /LPF Urine Amorphous Sediment Present /HPF Urine Bacteria 0 /HPF (0-FEW) Urine Mucus Slight /LPF Ferritin 40 ng/mL (26-388) White Blood Count 7.3 x10^3/uL (4.0-11.0) Red Blood Count 3.22 x10^6/uL (4.30-5.70) Hemoglobin 7.8 g/dL (13.0-17.5) Hematocrit 24.8 % (39.0-53.0) Mean Corpuscular Volume 77 fL (79-100) Mean Corpuscular Hemoglobin 24 pg (25-35) Mean Corpuscular Hemoglobin Concent 32 g/dL (31-37) Red Cell Distribution Width 14.5 % (11.5-14.5) Platelet Count 114 x10^3/uL (140-400) Neutrophils (%) (Auto) 58 % (31-73) Lymphocytes (%) (Auto) 33 % (24-48) Monocytes (%) (Auto) 9 % (0-9) Eosinophils (%) (Auto) 0 % (0-3) Basophils (%) (Auto) 0 % (0-3) Neutrophils # (Auto) 4.2 x10^3/uL (1.8-7.7) Lymphocytes # (Auto) 2.4 x10^3/uL (1.0-4.8) Monocytes # (Auto) 0.7 x10^3/uL (0.0-1.1) Eosinophils # (Auto) 0.0 x10^3/uL (0.0-0.7) Basophils # (Auto) 0.0 x10^3/uL (0.0-0.2) Platelet Estimate Decreased (ADEQUATE) Large Platelets Few Hypochromasia Mod Microcytosis Slight Target Cells Occ Ovalocytes Mod Stauffer-Venedy Bodies Present Sodium Level 140 mmol/L (136-145) Potassium Level 3.5 mmol/L (3.5-5.1) Chloride Level 104 mmol/L (98-107) Carbon Dioxide Level 27 mmol/L (21-32) Anion Gap 9 (6-14) Blood Urea Nitrogen 17 mg/dL (8-26) Creatinine 0.8 mg/dL (0.7-1.3) Estimated GFR (Cockcroft-Gault) 101.1 BUN/Creatinine Ratio 21 (6-20) Glucose Level 117 mg/dL (70-99) Calcium Level 8.0 mg/dL (8.5-10.1) Magnesium Level 1.8 mg/dL (1.8-2.4) Total Bilirubin 0.3 mg/dL (0.2-1.0) Aspartate Amino Transf (AST/SGOT) 22 U/L (15-37) Alanine Aminotransferase (ALT/SGPT) 44 U/L (16-63) Alkaline Phosphatase 60 U/L (46-116) Total Protein 5.9 g/dL (6.4-8.2) Albumin 3.3 g/dL (3.4-5.0) Albumin/Globulin Ratio 1.3 (1.0-1.7) Lipase 52 U/L (73-393) Glucose (Fingerstick) 122 mg/dL (70-99) Test 08/09/20 06:40 White Blood Count 6.5 x10^3/uL (4.0-11.0) Red Blood Count 3.10 x10^6/uL (4.30-5.70) Hemoglobin 7.5 g/dL (13.0-17.5) Hematocrit 24.1 % (39.0-53.0) Mean Corpuscular Volume 78 fL (79-100) Mean Corpuscular Hemoglobin 24 pg (25-35) Mean Corpuscular Hemoglobin Concent 31 g/dL (31-37) Red Cell Distribution Width 14.6 % (11.5-14.5) Platelet Count 91 x10^3/uL (140-400) Neutrophils (%) (Auto) 50 % (31-73) Lymphocytes (%) (Auto) 36 % (24-48) Monocytes (%) (Auto) 12 % (0-9) Eosinophils (%) (Auto) 2 % (0-3) Basophils (%) (Auto) 1 % (0-3) Neutrophils # (Auto) 3.2 x10^3/uL (1.8-7.7) Lymphocytes # (Auto) 2.4 x10^3/uL (1.0-4.8) Monocytes # (Auto) 0.7 x10^3/uL (0.0-1.1) Eosinophils # (Auto) 0.1 x10^3/uL (0.0-0.7) Basophils # (Auto) 0.0 x10^3/uL (0.0-0.2) Sodium Level 144 mmol/L (136-145) Potassium Level 4.2 mmol/L (3.5-5.1) Chloride Level 109 mmol/L (98-107) Carbon Dioxide Level 29 mmol/L (21-32) Anion Gap 6 (6-14) Blood Urea Nitrogen 10 mg/dL (8-26) Creatinine 0.7 mg/dL (0.7-1.3) Estimated GFR (Cockcroft-Gault) 142.7 Glucose Level 107 mg/dL (70-99) Calcium Level 8.1 mg/dL (8.5-10.1) Phosphorus Level 2.7 mg/dL (2.6-4.7) Magnesium Level 2.2 mg/dL (1.8-2.4) Allergies: Coded Allergies: No Known Drug Allergies (Unverified , 08/08/20) Medications: Current Medications Medications (Trade) Dose Ordered Sig/Luma Route PRN Reason Start Time Stop Time Status Last Admin Dose Admin Iohexol (Omnipaque 300 Mg/ml) 75 ml 1X ONCE IV 08/08/20 16:15 08/08/20 16:16 DC 08/08/20 16:23 Sodium Chloride 1,000 ml @ 125 mls/hr Q8H IV 08/08/20 17:15 08/09/20 17:14 08/09/20 05:58 Pantoprazole Sodium (PROTONIX VIAL for IV PUSH) 40 mg DAILYAC IVP 08/09/20 07:30 08/09/20 05:57 Atorvastatin Calcium (Lipitor) 40 mg DAILY PO 08/09/20 09:00 08/09/20 08:37 Sertraline HCl (Zoloft) 100 mg DAILY PO 08/09/20 09:00 08/09/20 08:38 Imaging: Imaging: On CT A/P: MPRESSION: No acute abdominal or pelvic finding. PE: GEN: NAD HEENT: Atraumatic, PERRLA LUNGS: CTAB HEART: RRR, no murmurs ABD: NABS, S/ND/NT, no masses EXTREMITY: No edema SKIN: No rashes, no jaundice NEURO/PSYCH: A & O 3 A/P: A/P: IMP: Rectal bleeding. If history reliable, not much chance of colonic lesion to account for save maybe hemorrhoids. Can't r/o Meckel's; 2 I have diagnosed in the past presented with intermittent rectal blood and ZEYNEP. Doubt rapid transit from above. Microcytic anemia implies iron deficiency and chronic blood loss. Never EGD though no symptoms. Thromocytopenia, why unclear. REC: Formal iron studies. COVID testing. OK to feed. Will tentatively consider EGD Tuesday. Meckel's scan. OK to feed. --other pending. Thanks. RIVERA PIZARRO MD Aug 09, 2020 12:09
[2020-08-09 14:20] LABS: BARBITURATES NEG (NEG); BENZODIAZEPINES NEG (NEG); CANNABINOIDS NEG (NEG); COCAINE NEG (NEG); METHADONE NEG (NEG); OPIATES NEG (NEG); PHENCYCLIDINE NEG (NEG)
[2020-08-09 14:28] LABS: AMPHETAMINE/METHAMPHETAMINE NEG (NEG)
[2020-08-09 15:00] VITALS: BP 137/43
[2020-08-09 15:09] LABS: FECAL OB PT POSITIVE (NEG)
[2020-08-09 19:00] VITALS: BP 133/57
[2020-08-09] MEDS: ACETAMINOPHEN 325 MG TABLET. PO PRN (22:44)
[2020-08-09 23:00] VITALS: BP 127/61
[2020-08-10] VITALS (11 sets, daily range): BP systolic 96–167; BP diastolic 35–78
[2020-08-10] MEDS: PANTOPRAZOLE IV PUSH 40 MG VIAL. IVP SCH ×2 (06:00→07:54)
[2020-08-10] MEDS: ATORVASTATIN CALCIUM 40 MG TABLET. PO SCH (07:54)
[2020-08-10] MEDS: SERTRALINE 50 MG TABLET. PO SCH (07:54)
[2020-08-10] MEDS: ACETAMINOPHEN 325 MG TABLET. PO PRN (07:54)
[2020-08-10 08:23] LABS: BASO % 1 % (0-3); EOS # 0.1 x10^3/uL (0.0-0.7); EOS % 1 % (0-3); HEMATOCRIT 22.1 % (39.0-53.0); LYMPH # 2.3 x10^3/uL (1.0-4.8); LYMPH % 40 % (24-48); MEAN CORPUSCULAR HEMOGLOBIN 24 pg (25-35); MEAN CORPUSCULAR HGB CONC 31 g/dL (31-37); MEAN CORPUSCULAR VOLUME 79 fL (79-100); MONO # 0.7 x10^3/uL (0.0-1.1); MONO % 11 % (0-9); NEUT # 2.7 x10^3/uL (1.8-7.7); NEUT % 47 % (31-73); PLATELET COUNT 120 x10^3/uL (140-400); RED BLOOD COUNT 2.79 x10^6/uL (4.30-5.70); RED CELL DISTRIBUTION WIDTH 14.5 % (11.5-14.5); WHITE BLOOD COUNT 5.8 x10^3/uL (4.0-11.0)
[2020-08-10 08:35] LABS: CALCIUM 7.8 mg/dL (8.5-10.1); CREATININE 0.7 mg/dL (0.7-1.3); GFR 142.7; POTASSIUM 3.9 mmol/L (3.5-5.1)
[2020-08-10 09:08] LABS: HEMOGLOBIN 6.8 g/dL (13.0-17.5)
--- NOTE | 2020-08-10 11:18 | PDOC ---
PROGRESS NOTES Date of Service: DATE: 08/10/20 TIME: 11:17 Chief Complaint Chief Complaint IMPRESSION Microcytic anemia due to lower GI bleed Thrombocytopenia Prerenal azotemia WILVER ACUTE BLOOD LOSS ANEMIA HGB < 7 3-14, TRANSFUSE PLAN Admit to medicine for further management GI consult HIV screen UDS Ferritin level Continue IV fluids Clear liquid diet N.p.o. at midnight Hold for DVT prophylaxis Protonix GI prophylaxis ADA diet Full code Discussed with RN and SW Disposition inpatient management as above Surrogate decision maker is Undesignated this time Meckel's scan. consider EGD. last colonoscopy 2019 nl per patient need to consider repeating colonoscopy. History of Present Illness History of Present Illness Chief Complaint: Chief Complain: Bright red blood per stool per rectum History of Present Illness: HPI: Patient is a 55-year-old incarcerated male with past medical history significant for bipolar disorder and depression who comes to the ED for blood in his stool today. Patient states that he has never had this before. He has never had ta rry stools or maroon stools. He does denies any rectal pain or trauma. Patient did have a colonoscopy done 3 years ago which was negative for any polyps or masses. Has never had any internal hemorrhoids. Denies any recent weight loss. Denies fevers, chest pain, abdominal pain, dysuria or constipation. Past Medical/Surgical History: PMH/PSH: Bipolar disorder and depression Allergies: Allergies: Coded Allergies: No Known Drug Allergies (Unverified , 08/08/20) Family History: Family History: Reviewed with no relevant findings Social History: Social History: Denies alcohol, drug or tobacco abuse Current Medications: Current Medications Current Medications Iohexol (Omnipaque 300 Mg/ml) 75 ml 1X ONCE IV Last administered on 08/08/20at 16:23; Start 08/08/20 at 16:15; Stop 08/08/20 at 16:16; Status DC Info (CONTRAST GIVEN -- Rx MONITORING) 1 each PRN DAILY PRN MC SEE COMMENTS; Start 08/08/20 at 16:15; Stop 08/10/20 at 16:14 Sodium Chloride 1,000 ml @ 125 mls/hr Q8H IV Last administered on 08/08/20at 19:11; Start 08/08/20 at 17:15; Stop 08/09/20 at 17:14 ROS: Review of Systems Review of System REVIEW OF SYSTEMS: GENERAL: Denies weakness SKIN: No bruising, hair changes or rashes. EYES: No blurred, double or loss of vision. NOSE AND THROAT: No history of nosebleeds, hoarseness or sore throat. HEART: No history of palpitations, chest pain or shortness of breath on exertion. LUNGS: Denies cough, hemoptysis, wheezing or shortness of breath. GASTROINTESTINAL: Denies changes in appetite, nausea, vomiting, diarrhea or constipation. GENITOURINARY: No history of frequency, urgency, hesitancy or nocturia. NEUROLOGIC: Denies history of numbness, tingling, or tremor. PSYCHIATRIC: No history of panic, anxiety or depression. ENDOCRINE: No history of heat or cold intolerance, polyuria or polydipsia. EXTREMITIES: Denies joint pain, pain on walking or stiffness. Vitals Vitals Vital Signs Date Time Temp Pulse Resp B/P (MAP) Pulse Ox O2 Delivery O2 Flow Rate FiO2 08/10/20 07:45 98.6 56 18 128/40 (69) 99 Room Air 98.6 Physical Exam Physical Exam Physcial Exam: GEN: No apparent distress. Alert and oriented HEENT: Normal cephalic, atraumatic, external auditory canals are patent EYES: Extraocular muscles are intact, pupil are equally round and reactive to light and accommodation MUSCULOSKELETAL: Well developed , well nourished, good range of motion ENDOCRINE: No thyromegaly was palpated LYMPHATICS: No cervical chain or axillary nodes were noted HEMATOPOIETIC: No bruising NECK: Supple, no JVD, no thyromegaly was noted LUNGS: Clear to auscultation in all lung stephens without rhonchi or wheezing HEART: RRR, S!, S2 present. Peripheral pulses intact, no obvious murmurs noted ABDOMEN: Soft, nontender. Positive bowel sounds, no organomegaly, normal bowel sounds EXTREMITIES: Without clubbing, cyanosis, or edema. Pedal pulses intact. Negative Homans sign NEUROLOGIC: Normal speech and tone. A&O x 3, moves all extremities, no obviou s focal deficits PSYCHIATRIC: Normal affect, normal mood. Stable SKIN: No ulcerations or rashes, good skin turgor, no jaundice VASCULAR: Good capillary refill, neurovascular bundle appears to be intact General: Alert, Oriented X3, Cooperative, No acute distress Heart: Regular rate, Normal S1, Normal S2 Abdomen: Normal bowel sounds, Soft, No tenderness Extremities: No cyanosis, No edema, Normal pulses Labs LABS Laboratory Tests Test 08/09/20 13:38 08/09/20 14:00 08/10/20 06:30 SARS-CoV-2 Antigen (Rapid) Negative (NEGATIVE) Stool Occult Blood Positive (NEG) Urine Opiates Screen Neg (NEG) Urine Methadone Screen Neg (NEG) Urine Barbiturates Neg (NEG) Urine Phencyclidine Screen Neg (NEG) Urine Amphetamine/Methamphetamine Neg (NEG) Urine Benzodiazepines Screen Neg (NEG) Urine Cocaine Screen Neg (NEG) Urine Cannabinoids Screen Neg (NEG) Urine Ethyl Alcohol Neg (NEG) White Blood Count 5.8 x10^3/uL (4.0-11.0) Red Blood Count 2.79 x10^6/uL (4.30-5.70) Hemoglobin 6.8 g/dL (13.0-17.5) Hematocrit 22.1 % (39.0-53.0) Mean Corpuscular Volume 79 fL (79-100) Mean Corpuscular Hemoglobin 24 pg (25-35) Mean Corpuscular Hemoglobin Concent 31 g/dL (31-37) Red Cell Distribution Width 14.5 % (11.5-14.5) Platelet Count 120 x10^3/uL (140-400) Neutrophils (%) (Auto) 47 % (31-73) Lymphocytes (%) (Auto) 40 % (24-48) Monocytes (%) (Auto) 11 % (0-9) Eosinophils (%) (Auto) 1 % (0-3) Basophils (%) (Auto) 1 % (0-3) Neutrophils # (Auto) 2.7 x10^3/uL (1.8-7.7) Lymphocytes # (Auto) 2.3 x10^3/uL (1.0-4.8) Monocytes # (Auto) 0.7 x10^3/uL (0.0-1.1) Eosinophils # (Auto) 0.1 x10^3/uL (0.0-0.7) Basophils # (Auto) 0.0 x10^3/uL (0.0-0.2) Sodium Level 144 mmol/L (136-145) Potassium Level 3.9 mmol/L (3.5-5.1) Chloride Level 110 mmol/L (98-107) Carbon Dioxide Level 28 mmol/L (21-32) Anion Gap 6 (6-14) Blood Urea Nitrogen 8 mg/dL (8-26) Creatinine 0.7 mg/dL (0.7-1.3) Estimated GFR (Cockcroft-Gault) 142.7 Glucose Level 108 mg/dL (70-99) Calcium Level 7.8 mg/dL (8.5-10.1) Assessment and Plan Assessmemt and Plan Problems Medical Problems: (1) Anemia Status: Acute (2) Rectal bleeding Status: Acute Comment Review of Relevant I have reviewed the following items bennie (where applicable) has been applied. Labs Laboratory Tests Test 08/08/20 15:00 08/08/20 15:27 08/08/20 15:29 08/08/20 20:32 Urine Collection Type Unknown Urine Color Yellow Urine Clarity Clear Urine pH 5.5 (<5.0-8.0) Urine Specific [place] 1.015 (1.000-1.030) Urine Protein Negative mg/dL (NEG-TRACE) Urine Glucose (UA) Negative mg/dL (NEG) Urine Ketones (Stick) Negative mg/dL (NEG) Urine Blood Negative (NEG) Urine Nitrite Negative (NEG) Urine Bilirubin Negative (NEG) Urine Urobilinogen Dipstick 0.2 mg/dL (0.2 mg/dL) Urine Leukocyte Esterase Negative (NEG) Urine RBC Rare /HPF (0-2) Urine WBC Occ /HPF (0-4) Urine Squamous Epithelial Cells Few /LPF Urine Amorphous Sediment Present /HPF Urine Bacteria 0 /HPF (0-FEW) Urine Mucus Slight /LPF Ferritin 40 ng/mL (26-388) HIV (1&2) Antibody Screen Nonreactive (Nonreactive) White Blood Count 7.3 x10^3/uL (4.0-11.0) Red Blood Count 3.22 x10^6/uL (4.30-5.70) Hemoglobin 7.8 g/dL (13.0-17.5) Hematocrit 24.8 % (39.0-53.0) Mean Corpuscular Volume 77 fL (79-100) Mean Corpuscular Hemoglobin 24 pg (25-35) Mean Corpuscular Hemoglobin Concent 32 g/dL (31-37) Red Cell Distribution Width 14.5 % (11.5-14.5) Platelet Count 114 x10^3/uL (140-400) Neutrophils (%) (Auto) 58 % (31-73) Lymphocytes (%) (Auto) 33 % (24-48) Monocytes (%) (Auto) 9 % (0-9) Eosinophils (%) (Auto) 0 % (0-3) Basophils (%) (Auto) 0 % (0-3) Neutrophils # (Auto) 4.2 x10^3/uL (1.8-7.7) Lymphocytes # (Auto) 2.4 x10^3/uL (1.0-4.8) Monocytes # (Auto) 0.7 x10^3/uL (0.0-1.1) Eosinophils # (Auto) 0.0 x10^3/uL (0.0-0.7) Basophils # (Auto) 0.0 x10^3/uL (0.0-0.2) Platelet Estimate Decreased (ADEQUATE) Large Platelets Few Hypochromasia Mod Microcytosis Slight Target Cells Occ Ovalocytes Mod Stauffer-Bright Bodies Present Sodium Level 140 mmol/L (136-145) Potassium Level 3.5 mmol/L (3.5-5.1) Chloride Level 104 mmol/L (98-107) Carbon Dioxide Level 27 mmol/L (21-32) Anion Gap 9 (6-14) Blood Urea Nitrogen 17 mg/dL (8-26) Creatinine 0.8 mg/dL (0.7-1.3) Estimated GFR (Cockcroft-Gault) 101.1 BUN/Creatinine Ratio 21 (6-20) Glucose Level 117 mg/dL (70-99) Calcium Level 8.0 mg/dL (8.5-10.1) Magnesium Level 1.8 mg/dL (1.8-2.4) Total Bilirubin 0.3 mg/dL (0.2-1.0) Aspartate Amino Transf (AST/SGOT) 22 U/L (15-37) Alanine Aminotransferase (ALT/SGPT) 44 U/L (16-63) Alkaline Phosphatase 60 U/L (46-116) Total Protein 5.9 g/dL (6.4-8.2) Albumin 3.3 g/dL (3.4-5.0) Albumin/Globulin Ratio 1.3 (1.0-1.7) Lipase 52 U/L (73-393) Glucose (Fingerstick) 122 mg/dL (70-99) Test 08/09/20 06:40 08/09/20 13:38 08/09/20 14:00 08/10/20 06:30 White Blood Count 6.5 x10^3/uL (4.0-11.0) 5.8 x10^3/uL (4.0-11.0) Red Blood Count 3.10 x10^6/uL (4.30-5.70) 2.79 x10^6/uL (4.30-5.70) Hemoglobin 7.5 g/dL (13.0-17.5) 6.8 g/dL (13.0-17.5) Hematocrit 24.1 % (39.0-53.0) 22.1 % (39.0-53.0) Mean Corpuscular Volume 78 fL (79-100) 79 fL (79-100) Mean Corpuscular Hemoglobin 24 pg (25-35) 24 pg (25-35) Mean Corpuscular Hemoglobin Concent 31 g/dL (31-37) 31 g/dL (31-37) Red Cell Distribution Width 14.6 % (11.5-14.5) 14.5 % (11.5-14.5) Platelet Count 91 x10^3/uL (140-400) 120 x10^3/uL (140-400) Neutrophils (%) (Auto) 50 % (31-73) 47 % (31-73) Lymphocytes (%) (Auto) 36 % (24-48) 40 % (24-48) Monocytes (%) (Auto) 12 % (0-9) 11 % (0-9) Eosinophils (%) (Auto) 2 % (0-3) 1 % (0-3) Basophils (%) (Auto) 1 % (0-3) 1 % (0-3) Neutrophils # (Auto) 3.2 x10^3/uL (1.8-7.7) 2.7 x10^3/uL (1.8-7.7) Lymphocytes # (Auto) 2.4 x10^3/uL (1.0-4.8) 2.3 x10^3/uL (1.0-4.8) Monocytes # (Auto) 0.7 x10^3/uL (0.0-1.1) 0.7 x10^3/uL (0.0-1.1) Eosinophils # (Auto) 0.1 x10^3/uL (0.0-0.7) 0.1 x10^3/uL (0.0-0.7) Basophils # (Auto) 0.0 x10^3/uL (0.0-0.2) 0.0 x10^3/uL (0.0-0.2) Sodium Level 144 mmol/L (136-145) 144 mmol/L (136-145) Potassium Level 4.2 mmol/L (3.5-5.1) 3.9 mmol/L (3.5-5.1) Chloride Level 109 mmol/L (98-107) 110 mmol/L (98-107) Carbon Dioxide Level 29 mmol/L (21-32) 28 mmol/L (21-32) Anion Gap 6 (6-14) 6 (6-14) Blood Urea Nitrogen 10 mg/dL (8-26) 8 mg/dL (8-26) Creatinine 0.7 mg/dL (0.7-1.3) 0.7 mg/dL (0.7-1.3) Estimated GFR (Cockcroft-Gault) 142.7 142.7 Glucose Level 107 mg/dL (70-99) 108 mg/dL (70-99) Calcium Level 8.1 mg/dL (8.5-10.1) 7.8 mg/dL (8.5-10.1) Phosphorus Level 2.7 mg/dL (2.6-4.7) Magnesium Level 2.2 mg/dL (1.8-2.4) Iron Level 83 ug/dL (65-175) Total Iron Binding Capacity 281 ug/dL (250-450) Iron Saturation 30 % (15-34) SARS-CoV-2 Antigen (Rapid) Negative (NEGATIVE) Stool Occult Blood Positive (NEG) Urine Opiates Screen Neg (NEG) Urine Methadone Screen Neg (NEG) Urine Barbiturates Neg (NEG) Urine Phencyclidine Screen Neg (NEG) Urine Amphetamine/Methamphetamine Neg (NEG) Urine Benzodiazepines Screen Neg (NEG) Urine Cocaine Screen Neg (NEG) Urine Cannabinoids Screen Neg (NEG) Urine Ethyl Alcohol Neg (NEG) Laboratory Tests Test 08/09/20 13:38 08/09/20 14:00 08/10/20 06:30 SARS-CoV-2 Antigen (Rapid) Negative (NEGATIVE) Stool Occult Blood Positive (NEG) Urine Opiates Screen Neg (NEG) Urine Methadone Screen Neg (NEG) Urine Barbiturates Neg (NEG) Urine Phencyclidine Screen Neg (NEG) Urine Amphetamine/Methamphetamine Neg (NEG) Urine Benzodiazepines Screen Neg (NEG) Urine Cocaine Screen Neg (NEG) Urine Cannabinoids Screen Neg (NEG) Urine Ethyl Alcohol Neg (NEG) White Blood Count 5.8 x10^3/uL (4.0-11.0) Red Blood Count 2.79 x10^6/uL (4.30-5.70) Hemoglobin 6.8 g/dL (13.0-17.5) Hematocrit 22.1 % (39.0-53.0) Mean Corpuscular Volume 79 fL (79-100) Mean Corpuscular Hemoglobin 24 pg (25-35) Mean Corpuscular Hemoglobin Concent 31 g/dL (31-37) Red Cell Distribution Width 14.5 % (11.5-14.5) Platelet Count 120 x10^3/uL (140-400) Neutrophils (%) (Auto) 47 % (31-73) Lymphocytes (%) (Auto) 40 % (24-48) Monocytes (%) (Auto) 11 % (0-9) Eosinophils (%) (Auto) 1 % (0-3) Basophils (%) (Auto) 1 % (0-3) Neutrophils # (Auto) 2.7 x10^3/uL (1.8-7.7) Lymphocytes # (Auto) 2.3 x10^3/uL (1.0-4.8) Monocytes # (Auto) 0.7 x10^3/uL (0.0-1.1) Eosinophils # (Auto) 0.1 x10^3/uL (0.0-0.7) Basophils # (Auto) 0.0 x10^3/uL (0.0-0.2) Sodium Level 144 mmol/L (136-145) Potassium Level 3.9 mmol/L (3.5-5.1) Chloride Level 110 mmol/L (98-107) Carbon Dioxide Level 28 mmol/L (21-32) Anion Gap 6 (6-14) Blood Urea Nitrogen 8 mg/dL (8-26) Creatinine 0.7 mg/dL (0.7-1.3) Estimated GFR (Cockcroft-Gault) 142.7 Glucose Level 108 mg/dL (70-99) Calcium Level 7.8 mg/dL (8.5-10.1) Medications Current Medications Iohexol (Omnipaque 300 Mg/ml) 75 ml 1X ONCE IV Last administered on 08/08/20at 16:23; Start 08/08/20 at 16:15; Stop 08/08/20 at 16:16; Status DC Info (CONTRAST GIVEN -- Rx MONITORING) 1 each PRN DAILY PRN MC SEE COMMENTS; Start 08/08/20 at 16:15; Stop 08/10/20 at 16:14 Sodium Chloride 1,000 ml @ 125 mls/hr Q8H IV Last administered on 08/09/20at 14:46; Start 08/08/20 at 17:15; Stop 08/09/20 at 17:14; Status DC Sennosides (Senna) 17.2 mg PRN BID PRN PO CONSTIPATION; Start 08/08/20 at 21:15 Docusate Sodium (Colace) 100 mg PRN DAILY PRN PO HARD STOOLS; Start 08/08/20 at 21:15 Ondansetron HCl (Zofran) 4 mg PRN Q6HRS PRN IVP NAUSEA/VOMITING 1ST CHOICE; Start 08/08/20 at 21:15 Dextrose (Dextrose 50%-Water Syringe) 12.5 gm PRN Q15MIN PRN IV SEE COMMENTS; Start 08/08/20 at 21:15 Acetaminophen (Tylenol) 650 mg PRN Q4HRS PRN PO TEMP OVER 100.4F OR MILD PAIN Last administered on 08/10/20at 07:54; Start 08/08/20 at 21:15 Pantoprazole Sodium (PROTONIX VIAL for IV PUSH) 40 mg DAILYAC IVP Last admin istered on 08/10/20at 07:54; Start 08/09/20 at 07:30 Atorvastatin Calcium (Lipitor) 40 mg DAILY PO Last administered on 08/10/20at 07:54; Start 08/09/20 at 09:00 Sertraline HCl (Zoloft) 100 mg DAILY PO Last administered on 08/10/20at 07:54; Start 08/09/20 at 09:00 Acetaminophen (Tylenol) 650 mg PRN Q6HRS PRN PO MILD PAIN / TEMP > 100.3'F; Start 08/09/20 at 00:00; Stop 08/09/20 at 00:03; Status DC Active Scripts Active Reported Mobic (Meloxicam) 7.5 Mg Tablet 7.5 Mg PO BID Lipitor (Atorvastatin Calcium) 40 Mg Tablet 40 Mg PO DAILY Multi-Vitamin Daily (Multivitamin) 1 Each Tablet 1 Tab PO DAILY 30 Days Celebrex (Celecoxib) 100 Mg Capsule 100 Mg PO BID 30 Days Remeron (Mirtazapine) 30 Mg Tablet 1 Tab PO QHS Zoloft (Sertraline Hcl) 100 Mg Tablet 100 Mg PO DAILY Vitals/I & O Vital Sign - Last 24 Hours 08/09/20 08/09/20 08/09/20 08/09/20 15:00 19:00 20:00 23:00 Temp 97.9 98.9 97.9 97.9 98.9 97.9 Pulse 63 73 81 Resp 16 18 18 B/P (MAP) 137/43 (74) 133/57 (82) 127/61 (83) Pulse Ox 98 95 98 O2 Delivery Room Air Room Air Room Air Room Air 08/10/20 08/10/20 08/10/20 03:00 07:30 07:45 Temp 98.1 98.6 98.1 98.6 Pulse 69 56 Resp 18 18 B/P (MAP) 125/74 (91) 128/40 (69) Pulse Ox 98 99 O2 Delivery Room Air Room Air Room Air Justicifation of Admission Dx: Justifications for Admission: Justification of Admission Dx: Yes PILAR BRANTLEY MD Aug 10, 2020 11:18
--- NOTE | 2020-08-10 14:18 | PDOC ---
G I PROGRESS NOTE Subjective Says bleeding has let up. No nuclear scanning yet. Physical Exam Lungs clear anteriorly. RRR Abdomen soft, not tender. Review of Relevant I have reviewed the following items bennie (where applicable) has been applied. Labs Laboratory Tests Test 08/08/20 15:00 08/08/20 15:27 08/08/20 15:29 08/08/20 20:32 Urine Collection Type Unknown Urine Color Yellow Urine Clarity Clear Urine pH 5.5 (<5.0-8.0) Urine Specific [place] 1.015 (1.000-1.030) Urine Protein Negative mg/dL (NEG-TRACE) Urine Glucose (UA) Negative mg/dL (NEG) Urine Ketones (Stick) Negative mg/dL (NEG) Urine Blood Negative (NEG) Urine Nitrite Negative (NEG) Urine Bilirubin Negative (NEG) Urine Urobilinogen Dipstick 0.2 mg/dL (0.2 mg/dL) Urine Leukocyte Esterase Negative (NEG) Urine RBC Rare /HPF (0-2) Urine WBC Occ /HPF (0-4) Urine Squamous Epithelial Cells Few /LPF Urine Amorphous Sediment Present /HPF Urine Bacteria 0 /HPF (0-FEW) Urine Mucus Slight /LPF Ferritin 40 ng/mL (26-388) HIV (1&2) Antibody Screen Nonreactive (Nonreactive) White Blood Count 7.3 x10^3/uL (4.0-11.0) Red Blood Count 3.22 x10^6/uL (4.30-5.70) Hemoglobin 7.8 g/dL (13.0-17.5) Hematocrit 24.8 % (39.0-53.0) Mean Corpuscular Volume 77 fL (79-100) Mean Corpuscular Hemoglobin 24 pg (25-35) Mean Corpuscular Hemoglobin Concent 32 g/dL (31-37) Red Cell Distribution Width 14.5 % (11.5-14.5) Platelet Count 114 x10^3/uL (140-400) Neutrophils (%) (Auto) 58 % (31-73) Lymphocytes (%) (Auto) 33 % (24-48) Monocytes (%) (Auto) 9 % (0-9) Eosinophils (%) (Auto) 0 % (0-3) Basophils (%) (Auto) 0 % (0-3) Neutrophils # (Auto) 4.2 x10^3/uL (1.8-7.7) Lymphocytes # (Auto) 2.4 x10^3/uL (1.0-4.8) Monocytes # (Auto) 0.7 x10^3/uL (0.0-1.1) Eosinophils # (Auto) 0.0 x10^3/uL (0.0-0.7) Basophils # (Auto) 0.0 x10^3/uL (0.0-0.2) Platelet Estimate Decreased (ADEQUATE) Large Platelets Few Hypochromasia Mod Microcytosis Slight Target Cells Occ Ovalocytes Mod Stauffer[place] Bodies Present Sodium Level 140 mmol/L (136-145) Potassium Level 3.5 mmol/L (3.5-5.1) Chloride Level 104 mmol/L (98-107) Carbon Dioxide Level 27 mmol/L (21-32) Anion Gap 9 (6-14) Blood Urea Nitrogen 17 mg/dL (8-26) Creatinine 0.8 mg/dL (0.7-1.3) Estimated GFR (Cockcroft-Gault) 101.1 BUN/Creatinine Ratio 21 (6-20) Glucose Level 117 mg/dL (70-99) Calcium Level 8.0 mg/dL (8.5-10.1) Magnesium Level 1.8 mg/dL (1.8-2.4) Total Bilirubin 0.3 mg/dL (0.2-1.0) Aspartate Amino Transf (AST/SGOT) 22 U/L (15-37) Alanine Aminotransferase (ALT/SGPT) 44 U/L (16-63) Alkaline Phosphatase 60 U/L (46-116) Total Protein 5.9 g/dL (6.4-8.2) Albumin 3.3 g/dL (3.4-5.0) Albumin/Globulin Ratio 1.3 (1.0-1.7) Lipase 52 U/L (73-393) Glucose (Fingerstick) 122 mg/dL (70-99) Test 08/09/20 06:40 08/09/20 13:38 08/09/20 14:00 08/10/20 06:30 White Blood Count 6.5 x10^3/uL (4.0-11.0) 5.8 x10^3/uL (4.0-11.0) Red Blood Count 3.10 x10^6/uL (4.30-5.70) 2.79 x10^6/uL (4.30-5.70) Hemoglobin 7.5 g/dL (13.0-17.5) 6.8 g/dL (13.0-17.5) Hematocrit 24.1 % (39.0-53.0) 22.1 % (39.0-53.0) Mean Corpuscular Volume 78 fL (79-100) 79 fL (79-100) Mean Corpuscular Hemoglobin 24 pg (25-35) 24 pg (25-35) Mean Corpuscular Hemoglobin Concent 31 g/dL (31-37) 31 g/dL (31-37) Red Cell Distribution Width 14.6 % (11.5-14.5) 14.5 % (11.5-14.5) Platelet Count 91 x10^3/uL (140-400) 120 x10^3/uL (140-400) Neutrophils (%) (Auto) 50 % (31-73) 47 % (31-73) Lymphocytes (%) (Auto) 36 % (24-48) 40 % (24-48) Monocytes (%) (Auto) 12 % (0-9) 11 % (0-9) Eosinophils (%) (Auto) 2 % (0-3) 1 % (0-3) Basophils (%) (Auto) 1 % (0-3) 1 % (0-3) Neutrophils # (Auto) 3.2 x10^3/uL (1.8-7.7) 2.7 x10^3/uL (1.8-7.7) Lymphocytes # (Auto) 2.4 x10^3/uL (1.0-4.8) 2.3 x10^3/uL (1.0-4.8) Monocytes # (Auto) 0.7 x10^3/uL (0.0-1.1) 0.7 x10^3/uL (0.0-1.1) Eosinophils # (Auto) 0.1 x10^3/uL (0.0-0.7) 0.1 x10^3/uL (0.0-0.7) Basophils # (Auto) 0.0 x10^3/uL (0.0-0.2) 0.0 x10^3/uL (0.0-0.2) Sodium Level 144 mmol/L (136-145) 144 mmol/L (136-145) Potassium Level 4.2 mmol/L (3.5-5.1) 3.9 mmol/L (3.5-5.1) Chloride Level 109 mmol/L (98-107) 110 mmol/L (98-107) Carbon Dioxide Level 29 mmol/L (21-32) 28 mmol/L (21-32) Anion Gap 6 (6-14) 6 (6-14) Blood Urea Nitrogen 10 mg/dL (8-26) 8 mg/dL (8-26) Creatinine 0.7 mg/dL (0.7-1.3) 0.7 mg/dL (0.7-1.3) Estimated GFR (Cockcroft-Gault) 142.7 142.7 Glucose Level 107 mg/dL (70-99) 108 mg/dL (70-99) Calcium Level 8.1 mg/dL (8.5-10.1) 7.8 mg/dL (8.5-10.1) Phosphorus Level 2.7 mg/dL (2.6-4.7) Magnesium Level 2.2 mg/dL (1.8-2.4) Iron Level 83 ug/dL (65-175) Total Iron Binding Capacity 281 ug/dL (250-450) Iron Saturation 30 % (15-34) SARS-CoV-2 Antigen (Rapid) Negative (NEGATIVE) Stool Occult Blood Positive (NEG) Urine Opiates Screen Neg (NEG) Urine Methadone Screen Neg (NEG) Urine Barbiturates Neg (NEG) Urine Phencyclidine Screen Neg (NEG) Urine Amphetamine/Methamphetamine Neg (NEG) Urine Benzodiazepines Screen Neg (NEG) Urine Cocaine Screen Neg (NEG) Urine Cannabinoids Screen Neg (NEG) Urine Ethyl Alcohol Neg (NEG) Laboratory Tests Test 08/10/20 06:30 White Blood Count 5.8 x10^3/uL (4.0-11.0) Red Blood Count 2.79 x10^6/uL (4.30-5.70) Hemoglobin 6.8 g/dL (13.0-17.5) Hematocrit 22.1 % (39.0-53.0) Mean Corpuscular Volume 79 fL (79-100) Mean Corpuscular Hemoglobin 24 pg (25-35) Mean Corpuscular Hemoglobin Concent 31 g/dL (31-37) Red Cell Distribution Width 14.5 % (11.5-14.5) Platelet Count 120 x10^3/uL (140-400) Neutrophils (%) (Auto) 47 % (31-73) Lymphocytes (%) (Auto) 40 % (24-48) Monocytes (%) (Auto) 11 % (0-9) Eosinophils (%) (Auto) 1 % (0-3) Basophils (%) (Auto) 1 % (0-3) Neutrophils # (Auto) 2.7 x10^3/uL (1.8-7.7) Lymphocytes # (Auto) 2.3 x10^3/uL (1.0-4.8) Monocytes # (Auto) 0.7 x10^3/uL (0.0-1.1) Eosinophils # (Auto) 0.1 x10^3/uL (0.0-0.7) Basophils # (Auto) 0.0 x10^3/uL (0.0-0.2) Sodium Level 144 mmol/L (136-145) Potassium Level 3.9 mmol/L (3.5-5.1) Chloride Level 110 mmol/L (98-107) Carbon Dioxide Level 28 mmol/L (21-32) Anion Gap 6 (6-14) Blood Urea Nitrogen 8 mg/dL (8-26) Creatinine 0.7 mg/dL (0.7-1.3) Estimated GFR (Cockcroft-Gault) 142.7 Glucose Level 108 mg/dL (70-99) Calcium Level 7.8 mg/dL (8.5-10.1) Iron studies at this time normal. Vitals/I & O Vital Sign - Last 24 Hours 08/09/20 08/09/20 08/09/20 08/09/20 15:00 19:00 20:00 23:00 Temp 97.9 98.9 97.9 97.9 98.9 97.9 Pulse 63 73 81 Resp 16 18 18 B/P (MAP) 137/43 (74) 133/57 (82) 127/61 (83) Pulse Ox 98 95 98 O2 Delivery Room Air Room Air Room Air Room Air 08/10/20 08/10/20 08/10/20 08/10/20 03:00 07:30 07:45 13:45 Temp 98.1 98.6 97.2 98.1 98.6 97.2 Pulse 69 56 76 Resp 18 18 24 B/P (MAP) 125/74 (91) 128/40 (69) 167/70 Pulse Ox 98 99 O2 Delivery Room Air Room Air Room Air 08/10/20 14:05 Temp 98.2 98.2 Pulse 64 Resp 20 B/P (MAP) 109/53 Problem List Problems Medical Problems: (1) Anemia Status: Acute (2) Rectal bleeding Status: Acute Assessment Overt bleeding with h/o normal colonoscopy w/in 3 years; not likely to have colonic lesion of note, but possible. Meckel's? Scan pending. Occult UGI lesion(s)? Plan of Care Note Await Meckel's scan. May consider EGD. Failing answer from above, may need to consider repeating colonoscopy. Justicifation of Admission Dx: Justifications for Admission: Justification of Admission Dx: Yes RIVERA PIZARRO MD Aug 10, 2020 14:18
[2020-08-11 03:00] VITALS: BP 136/61
[2020-08-11 07:00] VITALS: BP 129/55
[2020-08-11 08:19] LABS: BASO % 1 % (0-3); EOS # 0.1 x10^3/uL (0.0-0.7); EOS % 1 % (0-3); HEMATOCRIT 27.7 % (39.0-53.0); HEMOGLOBIN 8.7 g/dL (13.0-17.5); LYMPH # 2.1 x10^3/uL (1.0-4.8); LYMPH % 32 % (24-48); MEAN CORPUSCULAR HEMOGLOBIN 25 pg (25-35); MEAN CORPUSCULAR HGB CONC 31 g/dL (31-37); MEAN CORPUSCULAR VOLUME 80 fL (79-100); MONO # 0.8 x10^3/uL (0.0-1.1); MONO % 12 % (0-9); NEUT # 3.5 x10^3/uL (1.8-7.7); NEUT % 54 % (31-73); PLATELET COUNT 109 x10^3/uL (140-400); RED BLOOD COUNT 3.48 x10^6/uL (4.30-5.70); WHITE BLOOD COUNT 6.5 x10^3/uL (4.0-11.0)
[2020-08-11 08:38] LABS: CALCIUM 8.8 mg/dL (8.5-10.1); CREATININE 0.8 mg/dL (0.7-1.3); GFR 122.4; POTASSIUM 4.2 mmol/L (3.5-5.1)
--- NOTE | 2020-08-11 08:55 | PDOC ---
[facility] PROGRESS NOTE Date of Service DOS: DATE: 08/11/20 TIME: 08:53 Chief Complaint Chief Complaint A/P: Acute Microcytic anemia due to lower GI bleed Thrombocytopenia Prerenal azotemia WILVER ACUTE BLOOD LOSS ANEMIA HGB < 7 3-14, TRANSFUSE PLAN Admit to medicine for further management GI consult HIV screen UDS Ferritin level Continue IV fluids Clear liquid diet N.p.o. at midnight Hold for DVT prophylaxis Protonix GI prophylaxis ADA diet Full code Discussed with RN and SW Disposition inpatient management as above Surrogate decision maker is Undesignated this time Meckel's scan. consider EGD. last colonoscopy 2018 nl per patient need to consider repeating colonoscopy. History of Present Illness History of Present Illness Mr Camara is a 55-year-old incarcerated male, recently released from custodial, with past medical history significant for bipolar disorder and depression who comes to the ED for blood in his stool. Patient states that he has never had this before. He has never had tarry stools or maroon stools. He does denies any rectal pain or trauma. Patient did have a colonoscopy done 3 years ago which was negative for any polyps or masses. Has never had any internal hemorrhoids. Denies any recent weight loss. Denies fevers, chest pain, abdominal pain, dysuria or constipation. CT abdomen/pelvis with no acute abnormalities. 08/10: Hb 6.8, transfused 1u PRBC Afebrile. Hb 8.7. He still feels dizzy and "woozy" upon standing. For Meckel scan today which was negative for any abnormal gastric mucosal implantations. Advised to back off on NSAIDs for outpatient. Plan is likely for EGD. He is amenable to this. Vitals/I&O Vitals/I&O: Vital Signs Date Time Temp Pulse Resp B/P (MAP) Pulse Ox O2 Delivery O2 Flow Rate FiO2 08/11/20 07:00 97.5 54 18 129/55 (79) 99 Room Air 97.5 I & O 08/10/20 08/10/20 08/11/20 15:00 23:00 07:00 Intake Total 300 ml 2000 ml Balance 300 ml 2000 ml Physical Exam Physical Exam: Physcial Exam: GEN: No apparent distress. Alert and oriented HEENT: Normal cephalic, atraumatic, external auditory canals are patent EYES: Extraocular muscles are intact, pupil are equally round and reactive to light and accommodation MUSCULOSKELETAL: Well developed , well nourished, good range of motion ENDOCRINE: No thyromegaly was palpated LYMPHATICS: No cervical chain or axillary nodes were noted HEMATOPOIETIC: No bruising NECK: Supple, no JVD, no thyromegaly was noted LUNGS: Clear to auscultation in all lung stephens without rhonchi or wheezing HEART: RRR, S!, S2 present. Peripheral pulses intact, no obvious murmurs noted ABDOMEN: Soft, nontender. Positive bowel sounds, no organomegaly, normal bowel sounds EXTREMITIES: Without clubbing, cyanosis, or edema. Pedal pulses intact. Negative Homans sign NEUROLOGIC: Normal speech and tone. A&O x 3, moves all extremities, no obvious focal deficits PSYCHIATRIC: Normal affect, normal mood. Stable SKIN: No ulcerations or rashes, good skin turgor, no jaundice VASCULAR: Good capillary refill, neurovascular bundle appears to be intact General: Alert, Oriented X3, Cooperative, No acute distress Heart: Regular rate, Normal S1, Normal S2 Abdomen: Normal bowel sounds, Soft, No tenderness Extremities: No cyanosis, No edema, Normal pulses Labs Labs: Laboratory Tests Test 08/11/20 07:50 White Blood Count 6.5 x10^3/uL (4.0-11.0) Red Blood Count 3.48 x10^6/uL (4.30-5.70) Hemoglobin 8.7 g/dL (13.0-17.5) Hematocrit 27.7 % (39.0-53.0) Mean Corpuscular Volume 80 fL (79-100) Mean Corpuscular Hemoglobin 25 pg (25-35) Mean Corpuscular Hemoglobin Concent 31 g/dL (31-37) Red Cell Distribution Width 15.0 % (11.5-14.5) Platelet Count 109 x10^3/uL (140-400) Neutrophils (%) (Auto) 54 % (31-73) Lymphocytes (%) (Auto) 32 % (24-48) Monocytes (%) (Auto) 12 % (0-9) Eosinophils (%) (Auto) 1 % (0-3) Basophils (%) (Auto) 1 % (0-3) Neutrophils # (Auto) 3.5 x10^3/uL (1.8-7.7) Lymphocytes # (Auto) 2.1 x10^3/uL (1.0-4.8) Monocytes # (Auto) 0.8 x10^3/uL (0.0-1.1) Eosinophils # (Auto) 0.1 x10^3/uL (0.0-0.7) Basophils # (Auto) 0.0 x10^3/uL (0.0-0.2) Sodium Level 143 mmol/L (136-145) Potassium Level 4.2 mmol/L (3.5-5.1) Chloride Level 106 mmol/L (98-107) Carbon Dioxide Level 30 mmol/L (21-32) Anion Gap 7 (6-14) Blood Urea Nitrogen 11 mg/dL (8-26) Creatinine 0.8 mg/dL (0.7-1.3) Estimated GFR (Cockcroft-Gault) 122.4 Glucose Level 121 mg/dL (70-99) Calcium Level 8.8 mg/dL (8.5-10.1) Assessment and Plan Assessmemt and Plan Problems Medical Problems: (1) Anemia Status: Acute (2) Rectal bleeding Status: Acute Comment Review of Relevant I have reviewed the following items bennie (where applicable) has been applied. Justifications for Admission Other Justification Anemia with lower GI BLEED SHENG MOHR MD Aug 11, 2020 08:55
[2020-08-11] MEDS: SERTRALINE 50 MG TABLET. PO SCH (10:07)
[2020-08-11] MEDS: ATORVASTATIN CALCIUM 40 MG TABLET. PO SCH (10:07)
[2020-08-11] MEDS: PANTOPRAZOLE IV PUSH 40 MG VIAL. IVP SCH (10:14)
--- NOTE | 2020-08-11 10:36 | PDOC ---
Date of Service: DATE: 08/11/20 TIME: 10:31 Objective: Vital Signs: Vital Signs Date Time Temp Pulse Resp B/P (MAP) Pulse Ox O2 Delivery O2 Flow Rate FiO2 08/11/20 07:20 Room Air 08/11/20 07:00 97.5 54 18 129/55 (79) 99 97.5 Labs: Laboratory Tests Test 08/11/20 07:50 White Blood Count 6.5 x10^3/uL Red Blood Count 3.48 x10^6/uL Hemoglobin 8.7 g/dL Hematocrit 27.7 % Mean Corpuscular Volume 80 fL Mean Corpuscular Hemoglobin 25 pg Mean Corpuscular Hemoglobin Concent 31 g/dL Red Cell Distribution Width 15.0 % Platelet Count 109 x10^3/uL Neutrophils (%) (Auto) 54 % Lymphocytes (%) (Auto) 32 % Monocytes (%) (Auto) 12 % Eosinophils (%) (Auto) 1 % Basophils (%) (Auto) 1 % Neutrophils # (Auto) 3.5 x10^3/uL Lymphocytes # (Auto) 2.1 x10^3/uL Monocytes # (Auto) 0.8 x10^3/uL Eosinophils # (Auto) 0.1 x10^3/uL Basophils # (Auto) 0.0 x10^3/uL Sodium Level 143 mmol/L Potassium Level 4.2 mmol/L Chloride Level 106 mmol/L Carbon Dioxide Level 30 mmol/L Anion Gap 7 Blood Urea Nitrogen 11 mg/dL Creatinine 0.8 mg/dL Estimated GFR (Cockcroft-Gault) 122.4 Glucose Level 121 mg/dL Calcium Level 8.8 mg/dL Imaging: Meckel's Scan 08/11 pending PE: out of room A/P: Rectal bleeding Microcytic anemia - iron panel normal - Hgb improved w/ transfusion yesterday Rapid COVID negative 08/09 -- Out of room when I stopped by - will return later. Awaiting Meckel's scan. Justicifation of Admission Dx: Justifications for Admission: Justification of Admission Dx: Yes CARLOS ROPER Aug 11, 2020 10:36
[2020-08-11 11:00] VITALS: BP 128/66
--- NOTE | 2020-08-11 11:41 | RAD ---
Nuclear medicine Meckel scan Radiopharmaceutical: 10 mCi Tc-99m pertechnetate History: 55-year-old man with blood in stools and diarrhea. COMPARISON: abdomen pelvis CT with IV contrast of 08/08/2020 Findings: Following intravenous administration of Tc-99m pertechnetate, the anterior abdominal radio nuclide angiogram is within normal limits without evidence of focal hyperperfusion within the abdomen or pelvis. Dynamic abdominal imaging was then performed for 40 minutes. No abnormal focus of pert echnetate accumulation is seen on any of these images. Physiologic activity in the stomach and acute angulation of urinary bladder is noted. Impression: No evidence for ectopic gastric mucosa in the abdominal cavity. Electronically signed by: Nydia Bullock MD (08/11/2020 11:38 AM) [id number]
[2020-08-11 15:00] VITALS: BP 129/62
[2020-08-11 19:00] VITALS: BP 124/71
[2020-08-11] MEDS: MIRTAZAPINE 15 MG TABLET PO SCH (20:24)
[2020-08-11 23:00] VITALS: BP 91/42
[2020-08-12] VITALS (11 sets, daily range): BP systolic 98–145; BP diastolic 36–108
[2020-08-12] MEDS: ATORVASTATIN CALCIUM 40 MG TABLET. PO SCH (08:39)
[2020-08-12] MEDS: SERTRALINE 50 MG TABLET. PO SCH (08:39)
[2020-08-12] MEDS ORDERED: IV RINGERS,LACTATED 1000ML 1,000 ML IV ONE (13:00)
--- NOTE | 2020-08-12 13:02 | PDOC ---
[facility] PROGRESS NOTE Date of Service DOS: DATE: 08/12/20 TIME: 13:01 Chief Complaint Chief Complaint A/P: Acute Microcytic anemia due to lower GI bleed Thrombocytopenia Prerenal azotemia WILVER ACUTE BLOOD LOSS ANEMIA HGB < 7 3-14, TRANSFUSE PLAN Admit to medicine for further management GI consult HIV screen UDS Ferritin level Continue IV fluids Clear liquid diet N.p.o. at midnight Hold for DVT prophylaxis Protonix GI prophylaxis ADA diet Full code Discussed with RN and SW Disposition inpatient management as above Surrogate decision maker is Undesignated this time Meckel's scan. consider EGD. last colonoscopy 2018 nl per patient need to consider repeating colonoscopy. History of Present Illness History of Present Illness Mr Camara is a 55-year-old incarcerated male, recently released from [facility], with past medical history significant for bipolar disorder and depression who comes to the ED for blood in his stool. Patient states that he has never had this before. He has never had tarry stools or maroon stools. He does denies any rectal pain or trauma. Patient did have a colonoscopy done 3 years ago which was negative for any polyps or masses. Has never had any internal hemorrhoids. Denies any recent weight loss. Denies fevers, chest pain, abdominal pain, dysuria or constipation. CT abdomen/pelvis with no acute abnormalities. 08/10: Hb 6.8, transfused 1u PRBC 08/11: Afebrile. Hb 8.7. He still feels dizzy and "woozy" upon standing. For Meckel scan today which was negative for any abnormal gastric mucosal implantations. Advised to back off on NSAIDs for outpatient. Plan is likely for EGD. He is amenable to this. Still feeling a little dizzy. Plan for EGD today. Will repeat CBC after EGD. If this is negative there is a plan for colonoscopy down the road I will defer to GI for at this time while inpatient. Vitals/I&O Vitals/I&O: Vital Signs Date Time Temp Pulse Resp B/P (MAP) Pulse Ox O2 Delivery O2 Flow Rate FiO2 08/12/20 12:47 98.1 61 20 97 98.1 08/12/20 11:02 138/70 (92) Room Air I & O 08/11/20 08/11/20 08/12/20 15:00 23:00 07:00 Intake Total 240 ml 440 ml Balance 240 ml 440 ml Physical Exam Physical Exam: Physcial Exam: GEN: No apparent distress. Alert and oriented HEENT: Normal cephalic, atraumatic, external auditory canals are patent EYES: Extraocular muscles are intact, pupil are equally round and reactive to light and accommodation MUSCULOSKELETAL: Well developed , well nourished, good range of motion ENDOCRINE: No thyromegaly was palpated LYMPHATICS: No cervical chain or axillary nodes were noted HEMATOPOIETIC: No bruising NECK: Supple, no JVD, no thyromegaly was noted LUNGS: Clear to auscultation in all lung stephens without rhonchi or wheezing HEART: RRR, S!, S2 present. Peripheral pulses intact, no obvious murmurs noted ABDOMEN: Soft, nontender. Positive bowel sounds, no organomegaly, normal bowel sounds EXTREMITIES: Without clubbing, cyanosis, or edema. Pedal pulses intact. Negative Homans sign NEUROLOGIC: Normal speech and tone. A&O x 3, moves all extremities, no obvious focal deficits PSYCHIATRIC: Normal affect, normal mood. Stable SKIN: No ulcerations or rashes, good skin turgor, no jaundice VASCULAR: Good capillary refill, neurovascular bundle appears to be intact General: Alert, Oriented X3, Cooperative, No acute distress Heart: Regular rate, Normal S1, Normal S2 Abdomen: Normal bowel sounds, Soft, No tenderness Extremities: No cyanosis, No edema, Normal pulses Assessment and Plan Assessmemt and Plan Problems Medical Problems: (1) Anemia Status: Acute (2) Rectal bleeding Status: Acute Comment Review of Relevant I have reviewed the following items bennie (where applicable) has been applied. Medications: Current Medications Medications (Trade) Dose Ordered Sig/Luma Route PRN Reason Start Time Stop Time Status Last Admin Dose Admin Mirtazapine (Remeron) 30 mg QHS PO 08/11/20 21:00 08/11/20 20:24 Justifications for Admission Other Justification Anemia with lower GI BLEED SHENG MOHR MD Aug 12, 2020 13:02
[2020-08-12] MEDS ORDERED: LIDOCAINE 2% PF 5 ML VIAL. ONE (13:45)
[2020-08-12] MEDS ORDERED: PROPOFOL 10 MG/ML (20ML) VIAL. IV ONE (13:45)
--- NOTE | 2020-08-12 14:00 | PDOC4 ---
PROCEDURE Procedure EGD/biopsies Indication: H/o ZEYNEP and normal colonoscopy Meds: per anesthesia Findings: E--Irregular Z-line at 40 cm c/w some degree of GERD. G--normal. Antral biopsies to r/o H.pylori. D--normal to 3rd portion. Bx's second portion to r/o celiac. Emile. well. IMP: GERD, mild, otherwise normal exam grossly. REC: Await path. Home with outpatient colonoscopy. RIVERA PIZARRO MD Aug 12, 2020 14:00
[2020-08-12] MEDS: MIRTAZAPINE 15 MG TABLET PO SCH (20:33)
[2020-08-13 03:12] VITALS: BP 86/38
[2020-08-13 04:00] VITALS: BP 99/49
[2020-08-13 05:16] LABS: BASO % 1 % (0-3); EOS # 0.1 x10^3/uL (0.0-0.7); EOS % 1 % (0-3); HEMATOCRIT 27.2 % (39.0-53.0); HEMOGLOBIN 8.2 g/dL (13.0-17.5); LYMPH # 1.9 x10^3/uL (1.0-4.8); LYMPH % 32 % (24-48); MEAN CORPUSCULAR HEMOGLOBIN 25 pg (25-35); MEAN CORPUSCULAR HGB CONC 30 g/dL (31-37); MEAN CORPUSCULAR VOLUME 81 fL (79-100); MONO # 0.7 x10^3/uL (0.0-1.1); MONO % 13 % (0-9); NEUT # 3.2 x10^3/uL (1.8-7.7); NEUT % 54 % (31-73); PLATELET COUNT 129 x10^3/uL (140-400); RED BLOOD COUNT 3.34 x10^6/uL (4.30-5.70); RED CELL DISTRIBUTION WIDTH 15.4 % (11.5-14.5); WHITE BLOOD COUNT 5.9 x10^3/uL (4.0-11.0)
[2020-08-13 06:08] LABS: ANISOCYTOSIS SLIGHT; OVALOCYTES OCC; PLT ESTIMATE ADEQUATE (ADEQUATE); POLYCHROMASIA SLIGHT
[2020-08-13 06:09] LABS: HYPOCHROMIA SLIGHT; TARGET CELLS OCC
[2020-08-13 07:11] VITALS: BP 123/71
[2020-08-13] MEDS: ATORVASTATIN CALCIUM 40 MG TABLET. PO SCH (07:49)
[2020-08-13] MEDS: ACETAMINOPHEN 325 MG TABLET. PO PRN (07:49)
[2020-08-13] MEDS: SERTRALINE 50 MG TABLET. PO SCH (07:50)
--- NOTE | 2020-08-13 08:49 | PDOC ---
[facility] PROGRESS NOTE Date of Service DOS: DATE: 08/13/20 TIME: 08:48 Chief Complaint Chief Complaint A/P: Acute Microcytic anemia due to lower GI bleed Thrombocytopenia Prerenal azotemia WILVER ACUTE BLOOD LOSS ANEMIA HGB < 7 3-14, TRANSFUSE last colonoscopy 2018 nl per patient need to consider repeating colonoscopy. History of Present Illness History of Present Illness Mr Camara is a 55-year-old incarcerated male, recently released from [facility], with past medical history significant for bipolar disorder and depre ssion who comes to the ED for blood in his stool. Patient states that he has never had this before. He has never had tarry stools or maroon stools. He does denies any rectal pain or trauma. Patient did have a colonoscopy done 3 years ago which was negative for any polyps or masses. Has never had any internal hemorrhoids. Denies any recent weight loss. Denies fevers, chest pain, abdominal pain, dysuria or constipation. CT abdomen/pelvis with no acute abnormalities. 08/10: Hb 6.8, transfused 1u PRBC 08/11: Afebrile. Hb 8.7. He still feels dizzy and "woozy" upon standing. For Meckel scan today which was negative for any abnormal gastric mucosal implantations. Advised to back off on NSAIDs for outpatient. Plan is likely for EGD. He is amenable to this. 08/12: Still a little dizzy. to EGD with biopsies, some evidence of GERD. Hb stable at 8.2. Dizziness is resolved. Happy with EGD findings of minimal GERD. He is okay taking [id number] H2 zo and minimizing low back outpatient. He will call to schedule colonoscopy with less: GI as he had one in 2019. There is a plan for colonoscopy down the road I will defer to GI for at this time while inpatient. Vitals/I&O Vitals/I&O: Vital Signs Date Time Temp Pulse Resp B/P (MAP) Pulse Ox O2 Delivery O2 Flow Rate FiO2 08/13/20 07:11 97.9 57 18 123/71 (88) 98 Room Air 97.9 08/12/20 13:57 3 I & O 08/12/20 08/12/20 08/13/20 15:00 23:00 07:00 Intake Total 600 ml 540 ml Balance 600 ml 540 ml Physical Exam Physical Exam: Physcial Exam: GEN: No apparent distress. Alert and oriented HEENT: Normal cephalic, atraumatic, external auditory canals are patent EYES: Extraocular muscles are intact, pupil are equally round and reactive to light and accommodation MUSCULOSKELETAL: Well developed , well nourished, good range of motion ENDOCRINE: No thyromegaly was palpated LYMPHATICS: No cervical chain or axillary nodes were noted HEMATOPOIETIC: No bruising NECK: Supple, no JVD, no thyromegaly was noted LUNGS: Clear to auscultation in all lung stephens without rhonchi or wheezing HEART: RRR, S!, S2 present. Peripheral pulses intact, no obvious murmurs noted ABDOMEN: Soft, nontender. Positive bowel sounds, no organomegaly, normal bowel sounds EXTREMITIES: Without clubbing, cyanosis, or edema. Pedal pulses intact. Negative Homans sign NEUROLOGIC: Normal speech and tone. A&O x 3, moves all extremities, no obvious focal deficits PSYCHIATRIC: Normal affect, normal mood. Stable SKIN: No ulcerations or rashes, good skin turgor, no jaundice VASCULAR: Good capillary refill, neurovascular bundle appears to be intact General: Alert, Oriented X3, Cooperative, No acute distress Heart: Regular rate, Normal S1, Normal S2 Abdomen: Normal bowel sounds, Soft, No tenderness Extremities: No cyanosis, No edema, Normal pulses Labs Labs: Laboratory Tests Test 08/13/20 04:35 White Blood Count 5.9 x10^3/uL (4.0-11.0) Red Blood Count 3.34 x10^6/uL (4.30-5.70) Hemoglobin 8.2 g/dL (13.0-17.5) Hematocrit 27.2 % (39.0-53.0) Mean Corpuscular Volume 81 fL (79-100) Mean Corpuscular Hemoglobin 25 pg (25-35) Mean Corpuscular Hemoglobin Concent 30 g/dL (31-37) Red Cell Distribution Width 15.4 % (11.5-14.5) Platelet Count 129 x10^3/uL (140-400) Neutrophils (%) (Auto) 54 % (31-73) Lymphocytes (%) (Auto) 32 % (24-48) Monocytes (%) (Auto) 13 % (0-9) Eosinophils (%) (Auto) 1 % (0-3) Basophils (%) (Auto) 1 % (0-3) Neutrophils # (Auto) 3.2 x10^3/uL (1.8-7.7) Lymphocytes # (Auto) 1.9 x10^3/uL (1.0-4.8) Monocytes # (Auto) 0.7 x10^3/uL (0.0-1.1) Eosinophils # (Auto) 0.1 x10^3/uL (0.0-0.7) Basophils # (Auto) 0.0 x10^3/uL (0.0-0.2) Platelet Estimate Adequate (ADEQUATE) Large Platelets Occ Polychromasia Slight Hypochromasia Slight Anisocytosis Slight Target Cells Occ Ovalocytes Occ Assessment and Plan Assessmemt and Plan Problems Medical Problems: (1) Anemia Status: Acute (2) Rectal bleeding Status: Acute Comment Review of Relevant I have reviewed the following items bennie (where applicable) has been applied. Medications: Current Medications Medications (Trade) Dose Ordered Sig/Luma Route PRN Reason Start Time Stop Time Status Last Admin Dose Admin Ringer's Solution 1,000 ml @ 75 mls/hr 1X ONCE IV 08/12/20 13:00 08/13/20 02:19 DC 08/12/20 12:30 Justifications for Admission Other Justification Anemia with lower GI BLEED SHENG MOHR MD Aug 13, 2020 08:49
[2020-08-13 10:23] VITALS: BP 158/78
--- NOTE | 2020-08-13 10:31 | PDOC ---
G I PROGRESS NOTE Subjective Says no further bleeding. Physical Exam Lungs clear. RRR Abdomen soft, not tender. Review of Relevant I have reviewed the following items bennie (where applicable) has been applied. Labs Laboratory Tests Test 08/13/20 04:35 White Blood Count 5.9 x10^3/uL (4.0-11.0) Red Blood Count 3.34 x10^6/uL (4.30-5.70) Hemoglobin 8.2 g/dL (13.0-17.5) Hematocrit 27.2 % (39.0-53.0) Mean Corpuscular Volume 81 fL (79-100) Mean Corpuscular Hemoglobin 25 pg (25-35) Mean Corpuscular Hemoglobin Concent 30 g/dL (31-37) Red Cell Distribution Width 15.4 % (11.5-14.5) Platelet Count 129 x10^3/uL (140-400) Neutrophils (%) (Auto) 54 % (31-73) Lymphocytes (%) (Auto) 32 % (24-48) Monocytes (%) (Auto) 13 % (0-9) Eosinophils (%) (Auto) 1 % (0-3) Basophils (%) (Auto) 1 % (0-3) Neutrophils # (Auto) 3.2 x10^3/uL (1.8-7.7) Lymphocytes # (Auto) 1.9 x10^3/uL (1.0-4.8) Monocytes # (Auto) 0.7 x10^3/uL (0.0-1.1) Eosinophils # (Auto) 0.1 x10^3/uL (0.0-0.7) Basophils # (Auto) 0.0 x10^3/uL (0.0-0.2) Platelet Estimate Adequate (ADEQUATE) Large Platelets Occ Polychromasia Slight Hypochromasia Slight Anisocytosis Slight Target Cells Occ Ovalocytes Occ Laboratory Tests Test 08/13/20 04:35 White Blood Count 5.9 x10^3/uL (4.0-11.0) Red Blood Count 3.34 x10^6/uL (4.30-5.70) Hemoglobin 8.2 g/dL (13.0-17.5) Hematocrit 27.2 % (39.0-53.0) Mean Corpuscular Volume 81 fL (79-100) Mean Corpuscular Hemoglobin 25 pg (25-35) Mean Corpuscular Hemoglobin Concent 30 g/dL (31-37) Red Cell Distribution Width 15.4 % (11.5-14.5) Platelet Count 129 x10^3/uL (140-400) Neutrophils (%) (Auto) 54 % (31-73) Lymphocytes (%) (Auto) 32 % (24-48) Monocytes (%) (Auto) 13 % (0-9) Eosinophils (%) (Auto) 1 % (0-3) Basophils (%) (Auto) 1 % (0-3) Neutrophils # (Auto) 3.2 x10^3/uL (1.8-7.7) Lymphocytes # (Auto) 1.9 x10^3/uL (1.0-4.8) Monocytes # (Auto) 0.7 x10^3/uL (0.0-1.1) Eosinophils # (Auto) 0.1 x10^3/uL (0.0-0.7) Basophils # (Auto) 0.0 x10^3/uL (0.0-0.2) Platelet Estimate Adequate (ADEQUATE) Large Platelets Occ Polychromasia Slight Hypochromasia Slight Anisocytosis Slight Target Cells Occ Ovalocytes Occ Vitals/I & O Vital Sign - Last 24 Hours 08/12/20 08/12/20 08/12/20 08/12/20 11:02 12:47 13:57 14:15 Temp 98.0 98.1 97.6 98.0 98.1 97.6 Pulse 54 61 57 56 Resp 18 20 16 20 B/P (MAP) 138/70 (92) 90/44 94/44 Pulse Ox 98 97 98 95 O2 Delivery Room Air Nasal Cannula Room Air O2 Flow Rate 3 08/12/20 08/12/20 08/12/20 08/12/20 14:41 14:53 15:08 15:23 Temp 98.0 98.0 Pulse 53 56 58 57 Resp 19 19 18 18 B/P (MAP) 128/72 (90) 130/79 (96) 118/54 (75) 104/51 (68) Pulse Ox 100 96 97 96 O2 Delivery Room Air Room Air Room Air Room Air 08/12/20 08/12/20 08/12/20 08/12/20 15:30 16:08 19:15 20:00 Temp 98.6 98.6 Pulse 58 57 63 Resp 16 18 18 B/P (MAP) 103/36 (58) 120/59 (79) 124/55 (78) Pulse Ox 96 98 97 O2 Delivery Room Air Room Air Room Air Room Air 08/12/20 08/13/20 08/13/20 08/13/20 23:29 03:12 04:00 07:11 Temp 97.8 98.2 97.8 98.2 Pulse 67 63 64 Resp 18 18 B/P (MAP) 129/108 (115) 86/38 (54) 99/49 (66) Pulse Ox 97 96 O2 Delivery Room Air Room Air 08/13/20 08/13/20 08/13/20 07:11 07:15 10:23 Temp 97.9 97.7 97.9 97.7 Pulse 57 70 Resp 18 18 B/P (MAP) 123/71 (88) 158/78 (104) Pulse Ox 98 99 O2 Delivery Room Air Room Air Room Air Intake and Output 08/12/20 08/12/20 08/13/20 15:00 23:00 07:00 Intake Total 600 ml 540 ml Balance 600 ml 540 ml Problem List Problems Medical Problems: (1) Anemia Status: Acute (2) Rectal bleeding Status: Acute Assessment H/o ZEYNEP, historically negative colonoscopy and nothing overt on EGD. SB? NSAID enteropathy. Would need repeat colon before can do SBCE. Plan of Care Note Home OK with me. Our office should contact re: scheduling colonoscopy, etc. Justicifation of Admission Dx: Justifications for Admission: Justification of Admission Dx: Yes RIVERA PIZARRO MD Aug 13, 2020 10:31
[2020-08-13] MEDS ORDERED: FAMO-63 PO (11:33)
[2020-08-13] MEDS ORDERED: ACET325T21 PO (11:33)
--- NOTE | 2020-08-13 11:36 | PDOC3 ---
Discharge Summary Visit Information Date of Admission: Aug 08, 2020 Date of Discharge: Aug 13, 2020 Admitting Diagnosis: Acute anemia Final Diagnosis Problems Medical Problems: (1) Anemia Status: Acute (2) Rectal bleeding Status: Acute Brief Hospital Course Allergies Allergies Coded Allergies Type Severity Reaction Last Updated Verified No Known Drug Allergies 08/08/20 No Vital Signs Vital Signs Date Time Temp Pulse Resp B/P (MAP) Pulse Ox O2 Delivery O2 Flow Rate FiO2 08/13/20 10:23 97.7 70 18 158/78 (104) 99 Room Air 97.7 08/12/20 13:57 3 Lab Results Laboratory Tests Test 08/13/20 04:35 White Blood Count 5.9 x10^3/uL (4.0-11.0) Red Blood Count 3.34 x10^6/uL (4.30-5.70) Hemoglobin 8.2 g/dL (13.0-17.5) Hematocrit 27.2 % (39.0-53.0) Mean Corpuscular Volume 81 fL (79-100) Mean Corpuscular Hemoglobin 25 pg (25-35) Mean Corpuscular Hemoglobin Concent 30 g/dL (31-37) Red Cell Distribution Width 15.4 % (11.5-14.5) Platelet Count 129 x10^3/uL (140-400) Neutrophils (%) (Auto) 54 % (31-73) Lymphocytes (%) (Auto) 32 % (24-48) Monocytes (%) (Auto) 13 % (0-9) Eosinophils (%) (Auto) 1 % (0-3) Basophils (%) (Auto) 1 % (0-3) Neutrophils # (Auto) 3.2 x10^3/uL (1.8-7.7) Lymphocytes # (Auto) 1.9 x10^3/uL (1.0-4.8) Monocytes # (Auto) 0.7 x10^3/uL (0.0-1.1) Eosinophils # (Auto) 0.1 x10^3/uL (0.0-0.7) Basophils # (Auto) 0.0 x10^3/uL (0.0-0.2) Platelet Estimate Adequate (ADEQUATE) Large Platelets Occ Polychromasia Slight Hypochromasia Slight Anisocytosis Slight Target Cells Occ Ovalocytes Occ Laboratory Tests Test 08/13/20 04:35 White Blood Count 5.9 x10^3/uL (4.0-11.0) Red Blood Count 3.34 x10^6/uL (4.30-5.70) Hemoglobin 8.2 g/dL (13.0-17.5) Hematocrit 27.2 % (39.0-53.0) Mean Corpuscular Volume 81 fL (79-100) Mean Corpuscular Hemoglobin 25 pg (25-35) Mean Corpuscular Hemoglobin Concent 30 g/dL (31-37) Red Cell Distribution Width 15.4 % (11.5-14.5) Platelet Count 129 x10^3/uL (140-400) Neutrophils (%) (Auto) 54 % (31-73) Lymphocytes (%) (Auto) 32 % (24-48) Monocytes (%) (Auto) 13 % (0-9) Eosinophils (%) (Auto) 1 % (0-3) Basophils (%) (Auto) 1 % (0-3) Neutrophils # (Auto) 3.2 x10^3/uL (1.8-7.7) Lymphocytes # (Auto) 1.9 x10^3/uL (1.0-4.8) Monocytes # (Auto) 0.7 x10^3/uL (0.0-1.1) Eosinophils # (Auto) 0.1 x10^3/uL (0.0-0.7) Basophils # (Auto) 0.0 x10^3/uL (0.0-0.2) Platelet Estimate Adequate (ADEQUATE) Large Platelets Occ Polychromasia Slight Hypochromasia Slight Anisocytosis Slight Target Cells Occ Ovalocytes Occ Brief Hospital Course Mr Camara is a 55-year-old incarcerated male, recently released from retirement, with past medical history significant for bipolar disorder and depression who comes to the ED for blood in his stool. Patient states that he has never had this before. He has never had tarry stools or maroon stools. He does denies any rectal pain or trauma. Patient did have a colonoscopy done 3 years ago which was negative for any polyps or masses. Has never had any internal hemorrhoids. Denies any recent weight loss. Denies fevers, chest pain, abdominal pain, dysuria or constipation. CT abdomen/pelvis with no acute abnormalities. 08/10: Hb 6.8, transfused 1u PRBC 08/11: Afebrile. Hb 8.7. He still feels dizzy and "woozy" upon standing. For Meckel scan today which was negative for any abnormal gastric mucosal implantations. Advised to back off on NSAIDs for outpatient. Plan is likely for EGD. He is amenable to this. 08/12: Still a little dizzy. to EGD with biopsies, some evidence of GERD. Hb stable at 8.2. Dizziness is resolved. Happy with EGD findings of minimal GERD. He is okay taking [id number] H2 zo and minimizing low back outpatient. He will call to schedule colonoscopy with less: GI as he had one in 2019. Consults: GI Problem list: Acute Microcytic anemia due to lower GI bleed Thrombocytopenia Prerenal azotemia - due to GI BLEED ACUTE BLOOD LOSS ANEMIA HGB < 7 3-14, TRANSFUSE Moderate protein calorie malnutrition - due to poor PO intake, malabsorption due to GI bleed last colonoscopy 2018 nl per patient need to consider repeating colonoscopy. There is a plan for colonoscopy down the road I will defer to GI for at this time while inpatient. Greater than 30 minutes spent on d/c Discharge Information Condition at Discharge: Improved Follow Up: Weeks (1) Disposition/Orders: D/C to Home Scheduled Ascorbic Acid (Vitamin C) 500 Mg Capsule.er, 1 CAP PO DAILY for Iron Deficiency for 30 Days, #30 Ref 0 Prescribed by: SHENG MOHR MD on 08/13/20 1137 Atorvastatin Calcium (Lipitor) 40 Mg Tablet, 40 MG PO DAILY for FOR CHOLESTEROL, #30 Ref 0 (Reported) Entered as Reported by: CLIFFORD MEDINA on 08/08/202131 Last Action: Continued on 08/08/202351 by CLIFFORD MEDINA Famotidine (Pepcid) 20 Mg Tablet, 20 MG PO BID for Acid reflux for 30 Days, #60 Ref 1 Prescribed by: SHENG MOHR MD on 08/13/20 1133 Ferrous Sulfate (Ferrous Sulfate) 325 Mg Tablet, 1 TAB PO DAILY for Iron Def Anemia for 30 Days, #30 Ref 3 Prescribed by: SHENG MOHR MD on 08/13/20 1137 Meloxicam (Mobic) 7.5 Mg Tablet, 7.5 MG PO BID for arthritis, (Reported) Entered as Reported by: CLIFFORD MEDINA on 08/09/20725 Last Action: New Order on 08/09/20725 by CLIFFORD MEDINA Mirtazapine (Remeron) 30 Mg Tablet, 1 TAB PO QHS for sleeping aid, #30 Ref 1 (Reported) Entered as Reported by: CLIFFORD MEDINA on 08/08/202131 Last Action: Converted on 08/11/201249 by SHENG MOHR MD Multivitamin (Multi-Vitamin Daily) 1 Each Tablet, 1 TAB PO DAILY for supplement for 30 Days, #30 Ref 0 (Reported) Entered as Reported by: CLIFFROD MEDINA on 08/08/202131 Last Action: Reviewed on 08/08/202349 by CLIFFORD MEDINA Sertraline Hcl (Zoloft) 100 Mg Tablet, 100 MG PO DAILY for ANTI-DEPRESSANT, Ref 0 (Reported) Entered as Reported by: CLIFFORD MEDINA on 08/08/202131 Last Action: Converted on 08/08/202351 by CLIFFORD MEDINA Scheduled PRN Acetaminophen (Acetaminophen) 325 Mg Tablet, 650 MG PO PRN Q4HRS PRN for TEMP OVER 100.4F OR MILD PAIN for 30 Days, #120 Prescribed by: SHENG MOHR MD on 08/13/20 1133 Discontinued Medications Celecoxib (Celebrex) 100 Mg Capsule, 100 MG PO BID for right knee pain for 30 Days, Ref 0 (Reported) Entered as Reported by: CLIFFORD MEDINA on 08/08/202131 Last Action: Reviewed on 08/08/202349 by CLIFFORD MEDINA Justicifation of Admission Dx: Justifications for Admission: Justification of Admission Dx: Yes SHENG MOHR MD Aug 13, 2020 11:36
[2020-08-13] MEDS ORDERED: FERR325T14 PO (11:37)
[2020-08-13] MEDS ORDERED: ASCO500C PO (11:37)
--- NOTE | 2020-08-13 11:55 | NUR ---
Pt. has d/c orders to return to to facility. JESSIE King paged re: d/c.
--- NOTE | 2020-08-13 13:23 | NUR ---
Pt. discharged to [facility] with guard.
--- NOTE | 2020-08-15 14:11 | PATHOLOGY ---
[facility] Accession Number: [id number] . 01 Material submitted: . PART A: duodenum - DUODENUM BIOPSY PART B: stomach - ANTRUM BIOPSY . 01 Clinical history: . ANEMIA EGD GI BLEED . 02 Diagnosis: A. Duodenal biopsies: - No significant pathologic abnormalities. . B. Gastric biopsies, antrum: - Active chronic gastritis, moderate to marked, with minute focus of intestinal metaplasia and with Helicobacter organisms identified. (JPM:sofía; 08/15/2020) S 08/15/2020 0933 Local . 02 Comment: Sections of the duodenal biopsy reveal segments of duodenal mucosa. Where best oriented, the mucosal villi show no sprue-like changes or significant inflammatory changes. . Sections of the gastric biopsy reveal gastric antral mucosa showing congestion and moderate to marked active chronic inflammation with a minute focus of intestinal metaplasia. A properly controlled immunoperoxidase stain for Helicobacter reveals focally prominent numbers of Helicobacter organisms. (JPM:sofía; 08/15/2020) . Special stain performed: Immunoperoxidase stain for Helicobacter on A1 . 02 Electronically signed: . Siddharth Bo MD, Pathologist NPI- [id number] . 01 Gross description: . A. The specimen is received in formalin, labeled "Jhony Robinsonbey, duodenum biopsy". Received are two segments of pale chicas tissue measuring 0.3 and 0.5 cm in maximum dimensions. The specimen is submitted entirely in cassette A1. . B. The specimen is received in formalin, labeled "Jhony Robinsonbey, antrum biopsy". Received are two segments of pale chicas tissue measuring 0.3 and 0.8 cm in maximum dimension. The specimen is submitted entirely in cassette B1. (CAA; 08/14/2020) QAC/QAC 08/14/[address] [place] [address] . 02 Pathologist provided ICD-10: K29.50, B96.81 . 02 CPT . 514890, 762183, [id number] Specimen Comment: A courtesy copy of this report has been sent to [phone], [phone] Specimen Comment: [phone], Specimen Comment: Report sent to ,DR PIZARRO / DR GU Performed at: [address], [place] [id number] MD Darren Garcia MD Phone: [phone] Performed at: 02 [facility] [address] [place], [place] [id number] MD Siddharth Bo MD Phone: [phone]
== END 2020-08-13 13:27 | DRG 378 ==
LOC: ER 14:45 → EEVIPCON 14:45 → ED HOLD 18:22 → 4 NORTH 20:05
PROVIDERS: ADMIT Internal Medicine; ATTEND Internal Medicine
PROC: 30233N1 Transfusion of Nonautologous Red Blood Cells into Peripheral Vein, Percutaneous Approach (ICD-10-PCS; 2020-08-10)
PROC: 0DB68ZX Excision of Stomach, Via Natural or Artificial Opening Endoscopic, Diagnostic (ICD-10-PCS; principal; 2020-08-12 14:30)
DX: K92.2 Gastrointestinal hemorrhage, unspecified (principal); D62 Acute posthemorrhagic anemia; N17.9 Acute kidney failure, unspecified; E44.0 Moderate protein-calorie malnutrition; D69.6 Thrombocytopenia, unspecified; F31.9 Bipolar disorder, unspecified; K21.9 Gastro-esophageal reflux disease without esophagitis; M48.00 Spinal stenosis, site unspecified; Z20.822 Contact with and (suspected) exposure to COVID-19; F41.9 Anxiety disorder, unspecified; M19.90 Unspecified osteoarthritis, unspecified site; Z68.35 Body mass index [BMI] 35.0-35.9, adult; Z87.891 Personal history of nicotine dependence
CPT/HCPCS: 36415; 36430; 74177; 78290; 80048; 80053; 80307; 81001; 82274; 82728; 82962; 83540; 83550; 83690; 83735; 84100; 85025; 86703; 86850; 86900; 86901; 86920; 87426; 96374; A9512; C9113; J2704; J7030; J7120; P9016; Q9967; U0003; 97110-GP; 97530-GP; 99285-25; G0378